=== PATIENT | female | born 1940 | race Caucasian/White ===

== ENCOUNTER 2019-09-19 13:00 | Inpatient (IN) | payer OTHER, MEDICARE, SELFPAY ==
[2019-09-19 13:07] VITALS: BMI 16.5
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
--- NOTE | 2019-09-19 13:31 | XR_ITS ---
WS: [id number] XR hip RT 2-3V wo/w pel* [id number] REASON FOR EXAM: fall, deformity FINDINGS: This study shows a dislocated comminuted fracture of the intertrochanteric area of the righ t hip displacement of the proximal portion from the distal medially. XR/XR hip RT 2-3V wo/w pel* [id number] IMPRESSION: Comminuted dislocated fracture of the intertrochanteric area of the right hip.
[2019-09-19 14:08] LABS: Basophils % 0.4 %; Eosinophils # 0.2 10^3/uL (0.0-0.8); Eosinophils % 2.3 %; Lymphocytes # 2.1 10^3/uL (0.8-4.8); Lymphocytes % 26.7 %; Mean Corpuscular HGB Conc 33.3 g/dL (30.0-36.0); Mean Corpuscular Hemoglobin 32.4 pg (28.0-34.0); Mean Corpuscular Volume 97.3 fL (81-99); Monocytes # 0.6 10^3/uL (0.2-0.9); Neutrophils # 4.9 10^3/uL (1.8-7.7); Neutrophils % 62.3 %; Nucleated Red Blood Cells % 0 %; Platelet Count 250 10^3/cmm (130-400); Red Cell Distribution Width 13.2 % (12.1-15.1); White Blood Count 7.8 10^3/uL (4.0-10.0)
[2019-09-19 14:23] LABS: Alanine Aminotransferase 23 U/L (0-33); Albumin Level 4.6 g/dL (3.5-5.2); Alkaline Phosphatase 54 IU/L (35-105); Aspartate Amino Transferase 47 U/L (0-32); Blood Urea Nitrogen 15 mg/dL (8-23); Calcium 9.7 mg/dL (8.5-10.5); Carbon Dioxide 26 mmol/L (22-29); Chloride 90 mmol/L (98-107); Globulin 3.2 g/dL (1.3-4.6); Glucose 138 mg/dL (65-115); Sodium 127 mmol/L (136-145); Total Bilirubin 0.5 mg/dL (0.15-1.2); Total Protein 7.8 g/dL (6.6-8.7)
--- NOTE | 2019-09-19 16:54 | PC.NURSE ---
Traction splint applied to patient. Posterior OCL applied and securred with ANIBAL wrap. Pulse, motor, and sensation present post application. Right leg secured to left leg.
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
--- NOTE | 2019-09-19 17:10 | PC.NURSE ---
Leiva catheter placed by charhouse worker
[2019-09-19 17:25] LABS: Iron 94 ug/dL (37-145); Percent Saturation 34.1 % (20-50); Total Iron Binding Capacity 275 mcg/dl; Unsaturated Iron Binding 181 ug/dL (112-347)
[2019-09-19 17:50] LABS: Alcohol Level < 10 mg/dL (0-10)
--- NOTE | 2019-09-19 18:27 | PC.NURSE ---
Wound on right hand cleaned with saline and dressed with 4x4's and coban.
[2019-09-19 18:35] VITALS: BP 115/75; PULSE 75; RESP 16; O2SAT 92
--- NOTE | 2019-09-19 18:39 | XR_ITS ---
WS: [id number] Portable AP upright chest, 09/19/2019 Clinical Data: pre op Comparison: Portable chest, 05/24/2014. Findings: No nodules, masses or effusions are seen. The heart is normal. The pulmonary vascularity is not increased. No pneumonia or pneumothorax is seen. The diaphragms are flattened. The aortic arch a nd descending aorta show tortuosity and minimal calcification. The patient's had a vertebroplasty at T5. There is a right total shoulder prosthesis. XR/XR chest 1V portable [id number] Impression: 1. Atherosclerosis and hyperinflation. 2. Vertebroplasty at T5 and right total shoulder prosthesis.
[2019-09-19 18:41] VITALS: BP 95/52; PULSE 73; RESP 20; TEMP 36.9; O2SAT 90
[2019-09-19 19:22] VITALS: BP 105/55; PULSE 67; RESP 17; TEMP 36.6; O2SAT 92
[2019-09-19] MEDS: pneumococcal (23 valent) SDV 0.5 mL IM (20:01)
[2019-09-19] MEDS: famotidine 20 mg/2 mL INJ IVP (20:03)
[2019-09-19] MEDS: folic acid 1 MG, multivitamin inj 10 ML, thiamine 100 MG in sodium chloride 0.9% 1,000 ML 252.8 MG IV (20:04)
[2019-09-19] MEDS: docusate sodium 100 mg Capsule PO (20:04)
[2019-09-19] MEDS: sodium chloride 0.9% 1,000 ML 100 ML IV (20:05)
[2019-09-19] MEDS: ondansetron 2 mg/ML SDV 2 mL 4 MG IVP (20:17)
[2019-09-19 21:28] VITALS: PULSE 59; RESP 16; O2SAT 94
[2019-09-19] MEDS: ipratropium-albuterol 3 mL Neb INHALATION (21:28)
[2019-09-19 21:33] VITALS: PULSE 59
[2019-09-19] MEDS: HYDROcodone-acetaminophen 5-325 mg Tablet 1 TAB PO (22:08)
[2019-09-19 22:17] LABS: Anion Gap 15.9 (5-19); Blood Urea Nitrogen 16 mg/dL (8-23); Calcium 8.5 mg/dL (8.5-10.5); Carbon Dioxide 23 mmol/L (22-29); Chloride 92 mmol/L (98-107); Glucose 149 mg/dL (65-115); Osmolality Calculated 263 mOsm/kg (285-295); Potassium 3.9 mmol/L (3.5-5.1); Sodium 127 mmol/L (136-145)
[2019-09-19] MEDS: LORazepam 2 mg Tablet PO (23:08)
[2019-09-20] VITALS (29 sets, daily range): BP systolic 86–133; BP diastolic 40–75; PULSE 65–94; RESP 12–19; TEMP 35.8–37.2; O2SAT 90–100
--- NOTE | 2019-09-20 | SCC_ITS ---
Procedure Done: Open reduction internal fixation right subtrochanteric hip fracture with Eugenio gamma 3 long trochanteric nail size 13 mm x 360 mm x 125 degrees with a proximal 10.5 mm x 85 mm lag screw and a distal fully locking screw size 5 mm x 40 mm 170.7 seconds of fluoroscopic guidance, for a cumulative dose of 11.85 mGy, was provided to Dr. Bell by the radiology department. C-arm images of the RIGHT femur were saved for the patient's permanent record. ZARA
--- NOTE | 2019-09-20 | XR_ITS ---
WS: [id number] Examination: Postop evaluation of the right hip HISTORY: Fracture and subtrochanteric. FINDINGS: The subtrochanteric fracture of the right hip seen immobilized with a gamma nail and a medu llary. The alignment is markedly improved from previous exam and is except. XR/XR femur RT min 2V* [id number] IMPRESSION: Subtrochanteric fracture immobilized with a gamma nail satisfactory alignment.
[2019-09-20] MEDS: ipratropium-albuterol 3 mL Neb INHALATION ×3 (02:20→20:34)
[2019-09-20 06:11] LABS: Anion Gap 15.6 (5-19); Blood Urea Nitrogen 14 mg/dL (8-23); Carbon Dioxide 19 mmol/L (22-29); Chloride 95 mmol/L (98-107); Glucose 131 mg/dL (65-115); Osmolality Calculated 258 mOsm/kg (285-295); Potassium 4.6 mmol/L (3.5-5.1); Sodium 125 mmol/L (136-145)
[2019-09-20 06:31] LABS: Chol HDL Ratio 2.36 mg/dL (0.0-4.40); Cholesterol 125 mg/dL (0-200); HDL Cholesterol 53 mg/dL (60-100); LDL Cholesterol Calculated 64 mg/dL (50-129); LDL HDL Ratio 1.21 RATIO (0.00-3.22); Triglycerides 42 mg/dL (0-150)
[2019-09-20 06:39] LABS: Basophils % 0.1 %; Hematocrit 25.2 % (37.0-47.0); Hemoglobin 8.4 g/dL (11.5-15.3); Lymphocytes # 0.9 10^3/uL (0.8-4.8); Lymphocytes % 9.6 %; Mean Corpuscular HGB Conc 33.3 g/dL (30.0-36.0); Mean Corpuscular Hemoglobin 33.9 pg (28.0-34.0); Mean Corpuscular Volume 101.6 fL (81-99); Mean Platelet Volume 11.3 fL (7.4-10.4); Monocytes # 0.9 10^3/uL (0.2-0.9); Monocytes % 9.6 %; Neutrophils # 7.2 10^3/uL (1.8-7.7); Neutrophils % 80.4 %; Nucleated Red Blood Cells % 0 %; Platelet Count 178 10^3/cmm (130-400); Red Blood Count 2.48 10^6/uL (4.1-5.3); Red Cell Distribution Width 13.3 % (12.1-15.1)
[2019-09-20 07:20] LABS: Estmated Average Glucose 108; Hemoglobin A1C 5.4 % (4.0-6.0)
[2019-09-20] MEDS: famotidine 20 mg/2 mL INJ IVP ×2 (08:04→20:44)
--- NOTE | 2019-09-20 08:07 | P.ANESASSM_ITS ---
Pre-Anesthetic Assessment Pre-Anesthetic Assessment: Height/Weight: Height 1.57 m Weight 42.683 kg Temp Pulse Resp BP Pulse Ox 97.9 F 71 17 113/60 96 09/20/19 04:00 09/20/19 04:00 09/20/19 04:00 09/20/19 04:00 09/20/19 04:00 Preop Diagnosis: Right subtrochanteric hip fracture Proposed Procedure: Operation Date: 09/20/19 12:00 Proposed Procedures p Trochanteric Femoral Nail(Right) - Senia Bell MD Last intake: Intake Last Liquid Date 09/19/19 Last Liquid Time 22:00 Last Solid Date 09/19/19 Last Solid Time 20:00 Social: Social History: Tobacco Packs per day: 1 Pack years: 50 Comment: quit ' Exam: Pre-Anes Outpt Exam: alert, oriented x 3, clear to auscultation bilaterally and regular rate & rhythm Airway: Submandibular: WNL Cervical ROM: WNL MP: 1 Dentition: False Metabolic: Metabolic: Hyperlipidemia Musc/skel: Musc/skel: Lower Back Pain Comments: right radiculopathy Anesthetic Plan: ASA status: 2 Anesthesia: General Meds/Allergies Current Medications: Current Medications Generic Name Dose Route Start Last Admin Trade Name Freq PRN Reason Stop Dose Admin Hydrocodone Bitart /Acetaminophen 1 tab 09/19/19 16:44 09/19/19 22:08 [place] 5-325 Mg PO 1 tab Q4H PRN Administration MODERATE TO SEVER E PAIN Albuterol/Ipratrop ium 3 ml 09/19/19 21:00 09/20/19 02:20 Duoneb INHALATION 3 ml Q6H.RESPIRATORY S CH Administration Docusate Sodium 100 mg 09/19/19 18:00 09/19/19 20:04 Colace PO 100 mg BID GAIL Administration Famotidine 20 mg 09/19/19 16:45 09/20/19 08:04 Pepcid Inj IVP 20 mg Q12H GAIL Administration Sodium Chloride 1,000 mls @ 100 m ls/hr 09/19/19 16:45 09/20/19 03:17 Sodium Chloride 0.9% IV 100 mls/hr .Q10H GAIL Infusion Lorazepam 2 mg 09/19/19 18:39 09/19/19 23:08 Ativan PO 2 mg PROTOCOL PRN Administration WITHDRAWAL Protocol Ondansetron HCl 4 mg 09/19/19 16:44 09/19/19 20:17 Zofran IVP 4 mg Q8H PRN Administration vomiting, or N/V if npo PFSH Anesthesia PFSH: Medical History (Updated 09/19/19 @ 18:17 by Robles Gilbert MD, [facility] [place]) Alcohol abuse Hyperlipidemia Hyponatremia Surgical History (Updated 09/19/19 @ 17:01 by Edy Page MD) History of appendectomy History of hemiarthroplasty of right shoulder Tubal ligation status Family History (Updated 09/19/19 @ 17:01 by Edy Page MD) Other CAD (coronary artery disease) Hypertension Social History (Updated 09/19/19 @ 17:02 by Edy Page MD) Smoking and tobacco status: former smoker Alcohol intake: current Alcohol intake frequency: 0-2 Drinks per Day Alcohol use comment: Gin and tonic Substance/Drug Use: never Household members: spouse Housing: House Data Anesthesia CBC & Chem 7: 09/20/19 06:25 09/20/19 04:30 Other Labs: Laboratory Results - last 48 hr 09/19/19 09/19/19 09/19/19 12:50 12:50 12:50 WBC 7.8 RBC 3.70 L Hgb 12.0 Hct 36.0 L MCV 97.3 MCH 32.4 MCHC 33.3 RDW 13.2 Plt Count 250 MPV 12.0 H Neut % (Auto) 62.3 Lymph % (Auto) 26.7 [place] % (Auto) 8.0 Eos % (Auto) 2.3 Baso % (Auto) 0.4 Neut # (Auto) 4.9 Lymph # (Auto) 2.1 [place] # (Auto) 0.6 Eos # (Auto) 0.2 Baso # (Auto) 0.0 Nucleated RBC % (auto) 0 Nucleated RBCs # 0.0 Sodium 127 L Potassium 4.0 Chloride 90 L Carbon Dioxide 26 Anion Gap 15.0 BUN 15 Creatinine 0.5 Glucose 138 H Estimat Average Glucose Hemoglobin A1c Calculated Osmolality Calcium 9.7 Iron 94 TIBC 275 % Saturation 34.1 Unsat Iron Binding 181 Total Bilirubin 0.5 AST 47 H ALT 23 Alkaline Phosphatase 54 Total Protein 7.8 Albumin 4.6 Globulin 3.2 Triglycerides Cholesterol LDL Cholesterol, Calc HDL Cholesterol LDL/HDL Ratio Cholesterol/HDL Ratio TSH 0.90 Ethyl Alcohol 09/19/19 09/19/19 09/20/19 12:50 22:00 04:30 WBC RBC Hgb Hct MCV MCH MCHC RDW Plt Count MPV Neut % (Auto) Lymph % (Auto) [place] % (Auto) Eos % (Auto) Baso % (Auto) Neut # (Auto) Lymph # (Auto) [place] # (Auto) Eos # (Auto) Baso # (Auto) Nucleated RBC % (auto) Nucleated RBCs # Sodium 127 L 125 L Potassium 3.9 4.6 Chloride 92 L 95 L Carbon Dioxide 23 19 L Anion Gap 15.9 15.6 BUN 16 14 Creatinine 0.5 0.4 L Glucose 149 H 131 H Estimat Average Glucose Hemoglobin A1c Calculated Osmolality 263 L 258 L Calcium 8.5 8.0 L Iron TIBC % Saturation Unsat Iron Binding Total Bilirubin AST ALT Alkaline Phosphatase Total Protein Albumin Globulin Triglycerides Cholesterol LDL Cholesterol, Calc HDL Cholesterol LDL/HDL Ratio Cholesterol/HDL Ratio TSH Ethyl Alcohol < 10 09/20/19 09/20/19 09/20/19 04:30 06:25 06:25 WBC 9.0 RBC 2.48 L Hgb 8.4 L Hct 25.2 L MCV 101.6 H MCH 33.9 MCHC 33.3 RDW 13.3 Plt Count 178 MPV 11.3 H Neut % (Auto) 80.4 Lymph % (Auto) 9.6 [place] % (Auto) 9.6 Eos % (Auto) 0.0 Baso % (Auto) 0.1 Neut # (Auto) 7.2 Lymph # (Auto) 0.9 [place] # (Auto) 0.9 Eos # (Auto) 0.0 Baso # (Auto) 0.0 Nucleated RBC % (auto) 0 Nucleated RBCs # 0.0 Sodium Potassium Chloride Carbon Dioxide Anion Gap BUN Creatinine Glucose Estimat Average Glucose 108 Hemoglobin A1c 5.4 Calculated Osmolality Calcium Iron TIBC % Saturation Unsat Iron Binding Total Bilirubin AST ALT Alkaline Phosphatase Total Protein Albumin Globulin Triglycerides 42 Cholesterol 125 LDL Cholesterol, Calc 64 HDL Cholesterol 53 L LDL/HDL Ratio 1.21 Cholesterol/HDL Ratio 2.36 TSH Ethyl Alcohol Cardiac Studies: No Data to Display
[2019-09-20] MEDS: CELEcoxib 200 mg Capsule 400 MG PO (09:57)
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
[2019-09-20] MEDS: ceFAZolin 1,000 mg SDV 1000 MG IRRIGATION (13:25)
--- NOTE | 2019-09-20 14:29 | SUR.PHASEI ---
1429 PT HAS SENSATION/MOVEMENT TO R. FOOT, PEDAL PULSE PALPATED, CAP REFILL <3 SEC
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
--- NOTE | 2019-09-20 14:48 | PM.PN ---
Subjective Subjective: Interval history: Seen today morning postop. Labs noted. On examination patient is lying comfortably in bed, still lethargic and waking up appropriately postop. Overnight patient needed 1 dose of Ativan for CIWA of 10. Vitals/I&O/Wt Last Vital Signs Temp 98.6 F 09/20/19 14:09 Pulse 68 09/20/19 14:40 Resp 12 09/20/19 14:40 BP 108/45 09/20/19 14:40 Pulse Ox 96 09/20/19 14:40 09/19/19 09/20/19 09/20/19 22:59 06:59 14:59 Intake Total 250 / 250 720 / 970 136.667 / 136.667 Output Total 500 / 500 400 / 400 Balance 250 / 250 220 / 470 -263.333 / -263.333 Weight last 48 hrs Weight 42.683 kg Weight 40.823 kg Physical Exam Narrative: EXAM NARRATIVE: General: No acute distress, AO x3, dehydrated, pallor present, no icteric HEENT: PERRLA, pupils bilaterally equal and reactive Chest: Normal vesicular breath sounds, no added sounds, equal good air entry bilaterally CVS: S1-S2 regular, no murmurs, no tachycardia, no gallops, no rubs Abdomen: Soft, nontender, no organomegaly, bowel sounds present Neuro: No focal deficits, no facial deformity, AO x3, power 5/5 in all limbs Extremities: Postop bandage present on the hip Data : 09/21/19 10:13 09/21/19 10:13 A&P Assessment and plan (1) Subtrochanteric fracture of right femur: Status: Acute Code(s): S72.21XA - Displaced subtrochanteric fracture of right femur, initial encounter for closed fracture (2) Hyponatremia: Status: Acute Code(s): E87.1 - Hypo-osmolality and hyponatremia (3) Hyperlipidemia: Status: Acute Code(s): E78.5 - Hyperlipidemia, unspecified (4) Alcohol abuse: Status: Acute Code(s): F10.10 - Alcohol abuse, uncomplicated Additional A&P Information Subtrochanteric fracture of the right femur: Postop day 0. Physical therapy, perioperative antibiotics as per Dr. Bell. Oxycodone IR for pain every 4 hours as needed as per Dr. Bell. We will try to minimize the sedative medication given the advanced age. Anticoagulation as per Dr. Bell. Anemia: Pre op Hb- 8.3 Check stat post op labs. Iron panel. If needed will do 1 unit transfusion. Alcohol abuse: Patient takes gin and tonic every day. Denies of having any history of withdrawal seizures for admission due to alcohol withdrawal. We will do alcohol level. We will also do drug screen. Ativan as per [facility] protocol. Hyponatremia: Patient has had hyponatremia before with baseline sodium going up to 130. It is 127 today. Most likely due to dehydration. C/w normal saline at 100 cc/h. Check urine studies for urine lites, urine osmolality, serum osmolality.Still awaited. We will check BMP daily. Full code. SCDs for DVT prophylaxis Regular diet for now, n.p.o. after midnight. Attestations Medical Necessity Statement*: Post op managemnet Time Spent in Patient Care: 16 - 35 minutes Coding Level of Care Code Acute Horseshoer for Rohan Regalado Diagnoses Subtrochanteric fracture of right femur S72.21XA Hyponatremia E87.1 Hyperlipidemia E78.5 Alcohol abuse F10.10
--- NOTE | 2019-09-20 15:36 | PC.CHAP ---
Pastoral Care Encounter/Spiritual Assessment Type of Contact [] Declined director of accreditation visit [] Patient/Family/Request visit [] Outpatient visit [] Follow-up visit [] Physician referral [] Code/Alert [x] Routine visit [] Staff referral [] Actively dying [] Patient sleeping [] Family support [] [x] Out of room [] Palliative care [] [] Receiving care in room [] Pre-surgical visit [] Trauma [] Long length of stay [] ICU visit [] Other: Relational/Emotional Strength [] Patient feels connected with others/family/visitors/staff [] Distress [] Loneliness/isolation [] Abandonment Spirituality of Patient [] Person of Anayeli [] Attends Restoration of their Anayeli [] Believes in Prayer [] Reads Bible or Rastafari materials [] There are Spiritual issues to be addressed Ticket Taker Interventions [] Prayer [] Active listening [] Non-anxious presence [] Spiritual/emotional support [] Crisis/trauma care [] Spiritual counseling [] Bereavement support [] Provided bereavement packet [] Provided Bible/devotional materials [] Provided toy/stuffed animal, coloring book to patient or family member [] Provided Communion [] Anointing/[place] [] Salvation [] Completed spiritual assessment [] Other: Impact on Illness or Injury [] Angry [] Fearful [] Anxious [] Often cries [] Exhaustion [] Unable to work [] Unable to attend methodist [] Unable to walk/stand [] Unable to read [] Unable to drive [] Unable to eat/drink [] Unable to sleep [] Unable to be with family [] Patient intubated [] Other: Summary Ticket Taker request follow up visit by incoming director of accreditation. Time spent with patient
[2019-09-20] MEDS: acetaminophen 500 mg Tablet 1000 MG PO ×2 (16:10→23:34)
[2019-09-20 17:16] LABS: Add Urine Microscopic? NO
[2019-09-20 17:30] LABS: Bilirubin Urine Neg (NEGATIVE); Blood Urine Neg (Negative); Glucose Urine UA Norm (Normal); Ketones Urine Negative (Negative); Leukocyte Esterase Urine Negative (Negative); Nitrate Urine Negative (Negative); Protein Urine Neg (Negative); Urine Appearance Clear (CLEAR); Urine Color Yellow (Yellow); Urobilinogen Urine Norm (Negative); pH Urine 5 (5-7)
[2019-09-20] MEDS: sodium chloride 0.9% 1,000 ML 100 ML IV (17:30)
[2019-09-20] MEDS: CELEcoxib 200 mg Capsule PO (18:59)
[2019-09-20] MEDS: docusate sodium 100 mg Capsule PO (18:59)
[2019-09-20 19:03] LABS: Hematocrit 23.2 % (37.0-47.0); Hemoglobin 7.3 g/dL (11.5-15.3)
[2019-09-20] MEDS: sodium chloride 0.9% 500 ML IV (20:44)
[2019-09-21] VITALS (17 sets, daily range): BP systolic 99–110; BP diastolic 51–61; PULSE 78–95; RESP 16–18; TEMP 36.4–36.9; O2SAT 93–99
[2019-09-21] MEDS: ipratropium-albuterol 3 mL Neb INHALATION ×4 (02:29→20:45)
[2019-09-21 03:53] LABS: Basophils % 0.2 %; Eosinophils % 0.3 %; Hematocrit 22.4 % (37.0-47.0); Hemoglobin 7.5 g/dL (11.5-15.3); Lymphocytes # 0.9 10^3/uL (0.8-4.8); Lymphocytes % 9.8 %; Mean Corpuscular HGB Conc 33.5 g/dL (30.0-36.0); Mean Corpuscular Hemoglobin 33.2 pg (28.0-34.0); Mean Corpuscular Volume 99.1 fL (81-99); Mean Platelet Volume 11.6 fL (7.4-10.4); Monocytes # 0.8 10^3/uL (0.2-0.9); Neutrophils # 7.1 10^3/uL (1.8-7.7); Neutrophils % 80.4 %; Nucleated Red Blood Cells % 0 %; Platelet Count 132 10^3/cmm (130-400); Red Blood Count 2.26 10^6/uL (4.1-5.3); Red Cell Distribution Width 15.8 % (12.1-15.1); White Blood Count 8.9 10^3/uL (4.0-10.0)
[2019-09-21 03:59] LABS: Anion Gap 10.1 (5-19); Blood Urea Nitrogen 9 mg/dL (8-23); Calcium 7.1 mg/dL (8.5-10.5); Carbon Dioxide 23 mmol/L (22-29); Chloride 100 mmol/L (98-107); Glucose 124 mg/dL (65-115); Osmolality Calculated 265 mOsm/kg (285-295); Potassium 4.1 mmol/L (3.5-5.1); Sodium 129 mmol/L (136-145)
[2019-09-21] MEDS: acetaminophen 500 mg Tablet 1000 MG PO ×3 (06:57→22:07)
[2019-09-21 07:31] LABS: Osmolality Urine 729
[2019-09-21] MEDS: atorvastatin 40 mg Tablet 20 MG PO (09:15)
[2019-09-21] MEDS: aspirin 325 mg EC Tablet PO (09:15)
[2019-09-21] MEDS: CELEcoxib 200 mg Capsule PO ×2 (09:17→17:20)
[2019-09-21] MEDS: thiamine 100 mg Tablet PO (09:22)
[2019-09-21] MEDS: folic acid 1 mg Tablet PO (09:23)
[2019-09-21] MEDS: multivitamin therapeutic Tablet 1 TAB PO (09:23)
[2019-09-21] MEDS: famotidine 20 mg/2 mL INJ IVP ×2 (09:24→22:11)
[2019-09-21] MEDS: docusate sodium 100 mg Capsule PO ×2 (09:24→17:20)
[2019-09-21] MEDS: sodium chloride 0.9% 1,000 ML 100 ML IV ×2 (09:38→22:09)
--- NOTE | 2019-09-21 09:48 | PM.PN ---
Subjective Subjective: Interval history: Patient is seen and is doing well. She is alert and awake. She has no complaints today. Medications: Reviewed: Yes Vitals/I&O/Wt Last Vital Signs Temp 98.2 F 09/21/19 08:00 Pulse 85 09/21/19 09:34 Resp 17 09/21/19 09:28 BP 102/56 09/21/19 08:00 Pulse Ox 96 09/21/19 09:28 09/20/19 09/21/19 09/21/19 22:59 06:59 14:59 Intake Total 1053.333 / 1190.000 600 / 1790.000 601.667 / 601.667 Output Total 500 / 1200 Balance 1053.333 / 490.000 100 / 590.000 601.667 / 601.667 Weight last 48 hrs Weight 105 lb 11.2 oz Weight 94 lb 1.6 oz Weight 90 lb Physical Exam Const: COMMON NORMALS: no apparent distress, average body habitus, oriented x3 and alert GENERAL APPEARANCE: cooperative and comfortable NUTRITIONAL APPEARANCE: thin ORIENTATION/CONSCIOUSNESS: Yes awake HENMT: COMMON NORMALS: normocephalic and head/scalp atraumatic HEAD & SCALP: normocephalic and atraumatic Eye: GENERAL EYE: normal appearance of both eyes Chest: COMMONS NORMALS: inspection of chest normal Resp: COMMON NORMALS: normal respiratory effort EFFORT & INSPECTION: Yes able to speak in complete sentences and Yes symmetric chest movement Extremity: RIGHT LOWER EXTREMITY: Yes hip joint (Dressings are dry and intact. There is no evidence of infection or DVT.) Right hip: Yes palpation (Minimal pain to palpation.) and Yes neurovascular exam (Intact) Neuro: COMMON NORMALS: oriented x3 SENSORIUM/ORIENTATION: Yes alert Psych: COMMON NORMALS: mental status grossly normal APPEARANCE: Yes grossly normal ATTITUDE: Yes calm and Yes engaged ATTENTION/CONCENTRATION: Yes attention grossly intact Skin: COMMON NORMALS: no rashes or lesions noted GENERAL SKIN EXAM: no rashes or lesions noted Urinary Catheter Management^: Leiva: Cath Placed During This Visit: yes, but has since been removed by the nurse Reason for Continuing Indwelling Catheter: Required Immobilization for Trauma or Surgery or Anesthesia Urinary Catheter Date of Insertion: 09/20/19 Urinary Catheter Time of Insertion: 06:00 Date Urinary Catheter Removed: 09/21/19 Time Urinary Catheter Discontinued: 06:00 Data : 09/21/19 03:22 03 03:22 A&P Assessment and plan (1) Subtrochanteric fracture of right femur: The patient was admitted to the hospital through the emergency department with a diagnosis of a subtrochanteric right femur fracture. Patient is undergone open reduction internal fixation successfully. She is now ready for toe-touch weightbearing rehabilitation. Plans will be that she will require intermediate at the time of discharge. Status: Acute Code(s): S72.21XA - Displaced subtrochanteric fracture of right femur, initial encounter for closed fracture Attestations Medical Necessity Statement*: Patient will require further inpatient monitoring and rehabilitation following subtrochanteric hip fracture. Coding Level of Care Code Acute Plush Cutter for Rohan Regalado Diagnoses Subtrochanteric fracture of right femur S72.21XA
[2019-09-21 10:59] LABS: Basophils % 0.2 %; Eosinophils % 0.1 %; Hemoglobin 8.3 g/dL (11.5-15.3); Lymphocytes # 0.6 10^3/uL (0.8-4.8); Mean Corpuscular HGB Conc 31.9 g/dL (30.0-36.0); Mean Corpuscular Hemoglobin 31.6 pg (28.0-34.0); Mean Corpuscular Volume 98.9 fL (81-99); Mean Platelet Volume 11.9 fL (7.4-10.4); Monocytes # 0.8 10^3/uL (0.2-0.9); Neutrophils # 8.4 10^3/uL (1.8-7.7); Neutrophils % 85.5 %; Nucleated Red Blood Cells % 0 %; Platelet Count 156 10^3/cmm (130-400); Red Blood Count 2.63 10^6/uL (4.1-5.3); Red Cell Distribution Width 16.5 % (12.1-15.1); White Blood Count 9.8 10^3/uL (4.0-10.0)
[2019-09-21 11:17] LABS: Alanine Aminotransferase 17 U/L (0-33); Albumin Level 3.6 g/dL (3.5-5.2); Alkaline Phosphatase 47 IU/L (35-105); Anion Gap 13.8 (5-19); Aspartate Amino Transferase 37 U/L (0-32); Blood Urea Nitrogen 10 mg/dL (8-23); Calcium 7.5 mg/dL (8.5-10.5); Carbon Dioxide 21 mmol/L (22-29); Chloride 99 mmol/L (98-107); Globulin 2.3 g/dL (1.3-4.6); Glucose 120 mg/dL (65-115); Potassium 3.8 mmol/L (3.5-5.1); Sodium 130 mmol/L (136-145); Total Bilirubin 0.8 mg/dL (0.15-1.2); Total Protein 5.9 g/dL (6.6-8.7)
--- NOTE | 2019-09-21 11:24 | P.PN_ITS ---
Subjective Subjective: Interval history: This morning on examination patient is sitting comfortably in chair. Patient has worked well with physical therapy. Denies of any having nausea, vomiting, chest pain. Pain is well controlled. Overnight patient had mild hypotension for required 250 cc of bolus and responded appropriately. Received 1 unit PRBC last evening. Labs noted. Medications: Reviewed: Yes Vitals/I&O/Wt Last Vital Signs Temp 98.2 F 09/21/19 08:00 Pulse 85 09/21/19 09:34 Resp 17 09/21/19 09:28 BP 102/56 09/21/19 08:00 Pulse Ox 96 09/21/19 09:28 09/20/19 09/21/19 09/21/19 22:59 06:59 14:59 Intake Total 1053.333 / 1190.000 600 / 1790.000 601.667 / 601.667 Output Total 500 / 1200 Balance 1053.333 / 490.000 100 / 590.000 601.667 / 601.667 Weight last 48 hrs Weight 47.945 kg Weight 42.683 kg Weight 40.823 kg Physical Exam Narrative: EXAM NARRATIVE: General: No acute distress, AO x3, dehydrated, pallor present, no icteric HEENT: PERRLA, pupils bilaterally equal and reactive Chest: Normal vesicular breath sounds, no added sounds, equal good air entry bilaterally CVS: S1-S2 regular, no murmurs, no tachycardia, no gallops, no rubs Abdomen: Soft, nontender, no organomegaly, bowel sounds present Neuro: No focal deficits, no facial deformity, AO x3, power 5/5 in all limbs Extremities: Postop bandage present on the hip Urinary Catheter Management^: Leiva: Cath Placed During This Visit: yes, but has since been removed by the nurse Reason for Continuing Indwelling Catheter: Required Immobilization for Trauma or Surgery or Anesthesia Urinary Catheter Date of Insertion: 09/20/19 Urinary Catheter Time of Insertion: 06:00 Date Urinary Catheter Removed: 09/21/19 Time Urinary Catheter Discontinued: 06:00 Data : 09/21/19 10:13 09/21/19 10:13 A&P Assessment and plan (1) Subtrochanteric fracture of right femur: Status: Acute Code(s): S72.21XA - Displaced subtrochanteric fracture of right femur, initial encounter for closed fracture (2) Hyponatremia: Status: Acute Code(s): E87.1 - Hypo-osmolality and hyponatremia (3) Hyperlipidemia: Status: Acute Code(s): E78.5 - Hyperlipidemia, unspecified (4) Alcohol abuse: Status: Acute Code(s): F10.10 - Alcohol abuse, uncomplicated Additional A&P Information Subtrochanteric fracture of the right femur: Postop day 1. Working well withj PT. Oxycodone IR for pain every 4 hours as needed as per Dr. Bell. We will try to minimize the sedative medication given the advanced age. Anticoagulation as per Dr. Bell. Anemia: Post Op Hb was 7.3 given 1 unit PRBC. Hb 7.5 in AM. Recheck CBC. If still low will transfuse. Iron panel appreciated. Alcohol abuse: Patient takes gin and tonic every day. Denies of having any history of withdrawal seizures for admission due to alcohol withdrawal. We will do alcohol level. We will also do drug screen. Ativan as per [facility] protocol. Hyponatremia: Improving. MOst likely beer potonamia and dehydration. Urine studies still not sent. Now no point C/w normal saline at 100 cc/h. Check urine studies for urine lites, urine osmolality, serum osmolality.Still awaited. We will check BMP daily. Dipo: SNF once placed. Most likley d/c tomorrow. Full code. SCDs for DVT prophylaxis Regular diet for now, n.p.o. after midnight. Attestations Medical Necessity Statement*: Post Op management Time Spent in Patient Care: 16 - 35 minutes Coding Level of Care Code Acute Quality Assurance Lab Technician for Rohan Fwd Diagnoses Subtrochanteric fracture of right femur S72.21XA Hyponatremia E87.1 Hyperlipidemia E78.5 Alcohol abuse F10.10
--- NOTE | 2019-09-21 12:26 | ANE.PACU2 ---
 Inpatient post-anesthesia follow up: Airway intact: Yes Vital signs: Temperature 98.1 F Pulse Rate 87 Respiratory Rate 18 Blood Pressure 106/56 Pulse Oximetry 94 Oxygen Delivery Me thod Room Air Oxygen Flow Rate 8 Fraction of Inspir ed Oxygen Hydration adequate: Yes Nausea and vomiting: No Pain level: 2 Mental status: Baseline
--- NOTE | 2019-09-21 16:05 | PC.NURSE ---
bladder bladder scanned 77ml.
[2019-09-21] MEDS: FUROsemide 10 mg/mL SDV 2mL IVP (18:48)
[2019-09-21] MEDS: lactulose oral liq 20 gm/30 mL UDC 10 GM PO (18:49)
[2019-09-21] MEDS: efferdent effervescent 1 EACH DENTAL (23:22)
[2019-09-21 23:50] LABS: Amphetamines Screen Urine Negative (Negative); Barbiturates Screen Urine Negative (Negative); Benzodiazepines Screen Urine Positive (Negative); Cocaine Screen Urine Negative (Negative); Opiate Screen Urine Negative (Negative); PCP Screen Urine Negative (Negative); THC Screen Urine Negative (Negative)
[2019-09-22] VITALS (26 sets, daily range): BP systolic 105–128; BP diastolic 56–70; PULSE 71–96; RESP 16–18; TEMP 36.4–36.9; O2SAT 93–100
[2019-09-22 00:12] LABS: Bilirubin Urine Neg (NEGATIVE); Blood Urine Neg (Negative); Glucose Urine UA Norm (Normal); Ketones Urine Negative (Negative); Leukocyte Esterase Urine Negative (Negative); Nitrate Urine Negative (Negative); Protein Urine Neg (Negative); Specific Gravity, Urine 1.015 (1.005-1.030); Urine Appearance Clear (CLEAR); Urine Color Yellow (Yellow); Urobilinogen Urine Norm (Negative); pH Urine 5 (5-7)
[2019-09-22 00:13] LABS: Add Urine Culture? No
[2019-09-22 00:24] LABS: Potassium, Radom Urine 32 mmol/L; Urine Random Chloride 65 mmol/L; Urine Random Sodium 33 mmol/L
[2019-09-22] MEDS: ipratropium-albuterol 3 mL Neb INHALATION ×4 (03:11→20:05)
[2019-09-22] MEDS: TRAMadol 50 mg Tablet PO ×2 (05:01→17:25)
[2019-09-22 05:31] LABS: Basophils % 0.3 %; Eosinophils # 0.1 10^3/uL (0.0-0.8); Eosinophils % 1.7 %; Lymphocytes # 0.8 10^3/uL (0.8-4.8); Lymphocytes % 10.2 %; Mean Corpuscular Hemoglobin 33.2 pg (28.0-34.0); Mean Corpuscular Volume 100.5 fL (81-99); Mean Platelet Volume 11.9 fL (7.4-10.4); Monocytes # 0.8 10^3/uL (0.2-0.9); Monocytes % 10.3 %; Neutrophils # 5.8 10^3/uL (1.8-7.7); Neutrophils % 77.2 %; Nucleated Red Blood Cells % 0 %; Platelet Count 123 10^3/cmm (130-400); Red Blood Count 1.93 10^6/uL (4.1-5.3); White Blood Count 7.5 10^3/uL (4.0-10.0)
[2019-09-22 05:32] LABS: Alanine Aminotransferase 10 U/L (0-33); Albumin Level 2.9 g/dL (3.5-5.2); Alkaline Phosphatase 43 IU/L (35-105); Anion Gap 12.9 (5-19); Aspartate Amino Transferase 33 U/L (0-32); Blood Urea Nitrogen 13 mg/dL (8-23); Calcium 7.5 mg/dL (8.5-10.5); Carbon Dioxide 21 mmol/L (22-29); Chloride 103 mmol/L (98-107); Globulin 2.1 g/dL (1.3-4.6); Glucose 114 mg/dL (65-115); Potassium 3.9 mmol/L (3.5-5.1); Sodium 133 mmol/L (136-145); Total Bilirubin 0.4 mg/dL (0.15-1.2)
[2019-09-22 05:45] LABS: Hematocrit 19.4 % (37.0-47.0); Hemoglobin 6.4 g/dL (11.5-15.3)
[2019-09-22] MEDS: acetaminophen 500 mg Tablet 1000 MG PO ×3 (06:39→23:09)
[2019-09-22 07:46] LABS: Hematocrit 18.6 % (37.0-47.0); Hemoglobin 6.1 g/dL (11.5-15.3)
[2019-09-22] MEDS: famotidine 20 mg/2 mL INJ IVP ×2 (08:41→19:46)
[2019-09-22] MEDS: atorvastatin 40 mg Tablet 20 MG PO (09:26)
[2019-09-22] MEDS: CELEcoxib 200 mg Capsule PO ×2 (09:26→17:25)
[2019-09-22] MEDS: thiamine 100 mg Tablet PO (09:26)
[2019-09-22] MEDS: folic acid 1 mg Tablet PO (09:26)
[2019-09-22] MEDS: multivitamin therapeutic Tablet 1 TAB PO (09:26)
[2019-09-22] MEDS: docusate sodium 100 mg Capsule PO ×2 (09:26→17:25)
[2019-09-22] MEDS: aspirin 325 mg EC Tablet PO (09:27)
[2019-09-22] MEDS: sodium chloride 0.9% 200 ML 100 ML (09:37)
--- NOTE | 2019-09-22 10:25 | P.PN_ITS ---
Subjective Subjective: Interval history: This morning on examination patient is sitting comfortably in chair. Patient has worked well with physical therapy. Denies of any having nausea, vomiting, chest pain. Pain is well controlled. Hemoglobin down to 6.1 today morning. Patient denies of having any dizziness. Patient getting first unit of PRBCs Medications: Reviewed: Yes Vitals/I&O/Wt Last Vital Signs Temp 97.9 F 09/22/19 09:23 Pulse 86 09/22/19 09:56 Resp 17 09/22/19 09:52 BP 124/65 09/22/19 09:23 Pulse Ox 95 09/22/19 09:52 09/21/19 09/22/19 09/22/19 22:59 06:59 14:59 Intake Total 1120 / 2111.667 325 / 2436.667 240 / 240 Output Total 550 / 650 800 / 1450 Balance 570 / 1461.667 -475 / 986.667 240 / 240 Weight last 48 hrs Weight 64.41 kg Weight 47.945 kg Physical Exam Narrative: EXAM NARRATIVE: General: No acute distress, AO x3, dehydrated, pallor present, no icteric HEENT: PERRLA, pupils bilaterally equal and reactive Chest: Normal vesicular breath sounds, no added sounds, equal good air entry bilaterally CVS: S1-S2 regular, no murmurs, no tachycardia, no gallops, no rubs Abdomen: Soft, nontender, no organomegaly, bowel sounds present Neuro: No focal deficits, no facial deformity, AO x3, power 5/5 in all limbs Extremities: Postop bandage present on the hip Urinary Catheter Management^: Leiva: Cath Placed During This Visit: yes, but has since been removed by the nurse Reason for Continuing Indwelling Catheter: Not indwelling catheter Urinary Catheter Date of Insertion: 09/20/19 Urinary Catheter Time of Insertion: 06:00 Date Urinary Catheter Removed: 09/21/19 Time Urinary Catheter Discontinued: 06:00 Data : 09/22/19 07:23 09/22/19 04:23 A&P Assessment and plan (1) Subtrochanteric fracture of right femur: Status: Acute Code(s): S72.21XA - Displaced subtrochanteric fracture of right femur, initial encounter for closed fracture (2) Hyponatremia: Status: Acute Code(s): E87.1 - Hypo-osmolality and hyponatremia (3) Hyperlipidemia: Status: Acute Code(s): E78.5 - Hyperlipidemia, unspecified (4) Alcohol abuse: Status: Acute Code(s): F10.10 - Alcohol abuse, uncomplicated Additional A&P Information Subtrochanteric fracture of the right femur: Postop day 2. Working well with PT. Tramadol every 4 hours and oxycodone IR for pain every 4 hours as needed as per Dr. Bell. We will try to minimize the sedative medication given the advanced age. Patient has not taken any oxycodone till now. Anticoagulation as per Dr. Bell. Anemia: 6.1 today. Till now patient received 1 unit PRBC. We will transfuse with 2 more units today and recheck hemoglobin after completion. Iron panel appreciated. Alcohol abuse: Patient takes gin and tonic every day. Denies of having any history of withdrawal seizures for admission due to alcohol withdrawal. We will do alcohol level. We will also do drug screen. Ativan as per [facility] protocol. Hyponatremia: Improving. Most likely beer potonamia and dehydration. Urine studies still not sent. Now no point Stop IV fluids as patient is tolerating oral well. Check urine studies for urine lites, urine osmolality, serum osmolality.Still awaited. We will check BMP daily. Dispo: SNF once placed. Most dany d/c tomorrow. Full code. SCDs for DVT prophylaxis Regular diet for now, n.p.o. after midnight. Attestations Medical Necessity Statement*: Blood loss anemia, postoperative care Time Spent in Patient Care: 16 - 35 minutes Coding Level of Care Code Acute Advisor Consultant for [facility] Fwd Diagnoses Subtrochanteric fracture of right femur S72.21XA Hyponatremia E87.1 Hyperlipidemia E78.5 Alcohol abuse F10.10
--- NOTE | 2019-09-22 12:33 | PC.SOCIAL ---
Pg 2 IMM Explained to pt Pg 2 IMM & provided pt a copy. No questions voiced. Signed, dated, timed, & placed in pt's chart.
--- NOTE | 2019-09-22 15:24 | PC.OT ---
OT TREATMENT HELD DUE TODAY LOW HGB
--- NOTE | 2019-09-22 16:15 | P.PN_ITS ---
Subjective Subjective: Interval history: Patient continues to do well except she had a decrease in her H&H requiring transfusion. She is alert and awake and is very happy to move her foot and her leg. Medications: Reviewed: Yes Vitals/I&O/Wt Last Vital Signs Temp 97.8 F 09/22/19 15:44 Pulse 92 09/22/19 15:44 Resp 18 09/22/19 15:44 BP 128/68 09/22/19 15:44 Pulse Ox 99 09/22/19 15:44 09/22/19 09/22/19 09/22/19 06:59 14:59 22:59 Intake Total 325 / 2436.667 710 / 710 Output Total 800 / 1450 Balance -475 / 986.667 710 / 710 Weight last 48 hrs Weight 142 lb Weight 105 lb 11.2 oz Physical Exam Const: COMMON NORMALS: no apparent distress, average body habitus, oriented x3 and alert GENERAL APPEARANCE: cooperative and comfortable NUTRITIONAL APPEARANCE: thin ORIENTATION/CONSCIOUSNESS: Yes awake HENMT: COMMON NORMALS: normocephalic and head/scalp atraumatic HEAD & SCALP: normocephalic and atraumatic Eye: GENERAL EYE: normal appearance of both eyes Chest: COMMONS NORMALS: inspection of chest normal Resp: COMMON NORMALS: normal respiratory effort EFFORT & INSPECTION: Yes able to speak in complete sentences and Yes symmetric chest movement Extremity: RIGHT LOWER EXTREMITY: Yes hip joint (Patient's thigh is soft and nontender. There is no evidence of active bleeding.) Right hip: Yes inspection (Dressings are dry and intact.), Yes palpation (No tenderness to palpation.), Yes ROM (Not evaluated this patient was sitting up in her chair.) and Yes neurovascular exam (Intact.) Neuro: COMMON NORMALS: oriented x3 SENSORIUM/ORIENTATION: Yes alert Psych: COMMON NORMALS: mental status grossly normal APPEARANCE: Yes grossly normal ATTITUDE: Yes calm and Yes engaged ATTENTION/CONCENTRATION: Yes a ttention grossly intact Skin: COMMON NORMALS: no rashes or lesions noted GENERAL SKIN EXAM: no rashes or lesions noted Urinary Catheter Management^: Leiva: Cath Placed During This Visit: yes, but has since been removed by the nurse Reason for Continuing Indwelling Catheter: Not indwelling catheter Urinary Catheter Date of Insertion: 09/20/19 Urinary Catheter Time of Insertion: 06:00 Date Urinary Catheter Removed: 09/21/19 Time Urinary Catheter Discontinued: 06:00 Data : 09/22/19 07:23 09/22/19 04:23 A&P Assessment and plan (1) Subtrochanteric fracture of right femur: Open reduction internal fixation of her subtrochanteric hip fracture. She does have postoperative anemia and was treated with 2 units of packed red blood cells today. [facility], however, she required transfusion prior to discharge. Status: Acute Code(s): S72.21XA - Displaced subtrochanteric fracture of right femur, initial encounter for closed fracture Attestations Medical Necessity Statement*: Patient requires ongoing inpatient rehabilitation and medical management. Coding Level of Care Code Acute Dinkey Mechanic for Rohan Regalado Diagnoses Subtrochanteric fracture of right femur S72.21XA
[2019-09-22] MEDS: oxyCODONE 5 mg IR Tab/Cap PO (19:04)
[2019-09-22 22:48] LABS: Basophils % 0.3 %; Eosinophils # 0.2 10^3/uL (0.0-0.8); Hematocrit 30.6 % (37.0-47.0); Lymphocytes # 1.1 10^3/uL (0.8-4.8); Lymphocytes % 11.2 %; Mean Corpuscular HGB Conc 33.3 g/dL (30.0-36.0); Mean Corpuscular Hemoglobin 30.6 pg (28.0-34.0); Mean Corpuscular Volume 91.9 fL (81-99); Mean Platelet Volume 11.4 fL (7.4-10.4); Monocytes # 0.9 10^3/uL (0.2-0.9); Monocytes % 9.1 %; Neutrophils # 7.7 10^3/uL (1.8-7.7); Nucleated Red Blood Cells % 0 %; Platelet Count 140 10^3/cmm (130-400); Red Blood Count 3.33 10^6/uL (4.1-5.3); Red Cell Distribution Width 16.9 % (12.1-15.1)
[2019-09-22 22:50] LABS: Hemoglobin 10.2 g/dL (11.5-15.3)
--- NOTE | 2019-09-22 22:53 | PC.NURSE ---
pt not wanting to turn on side, much encouragement place pillow to turn on left side. redness to coccyx and upper spine area
[2019-09-23] VITALS (7 sets, daily range): BP systolic 112–114; BP diastolic 57–62; PULSE 69–88; RESP 14–18; TEMP 35.9–36.6; O2SAT 95–97
--- NOTE | 2019-09-23 01:21 | PC.NURSE ---
pt pulled pillow out laying on back, resting at this time will try to reposition again next round. Refusing footpumps
[2019-09-23] MEDS: ipratropium-albuterol 3 mL Neb INHALATION ×2 (02:11→09:14)
[2019-09-23] MEDS: acetaminophen 500 mg Tablet 1000 MG PO ×2 (05:58→14:47)
[2019-09-23 06:01] LABS: Basophils % 0.3 %; Eosinophils # 0.3 10^3/uL (0.0-0.8); Hematocrit 27.7 % (37.0-47.0); Hemoglobin 9.3 g/dL (11.5-15.3); Lymphocytes % 11.3 %; Mean Corpuscular HGB Conc 33.6 g/dL (30.0-36.0); Mean Corpuscular Hemoglobin 31.5 pg (28.0-34.0); Mean Corpuscular Volume 93.9 fL (81-99); Mean Platelet Volume 11.8 fL (7.4-10.4); Monocytes # 0.9 10^3/uL (0.2-0.9); Monocytes % 9.9 %; Neutrophils # 6.5 10^3/uL (1.8-7.7); Neutrophils % 75.2 %; Nucleated Red Blood Cells % 0 %; Platelet Count 134 10^3/cmm (130-400); Red Blood Count 2.95 10^6/uL (4.1-5.3); Red Cell Distribution Width 16.6 % (12.1-15.1); White Blood Count 8.6 10^3/uL (4.0-10.0)
[2019-09-23] MEDS: famotidine 20 mg Tablet PO (08:26)
[2019-09-23] MEDS: aspirin 325 mg EC Tablet PO (08:26)
[2019-09-23] MEDS: thiamine 100 mg Tablet PO (08:26)
[2019-09-23] MEDS: docusate sodium 100 mg Capsule PO (08:27)
[2019-09-23] MEDS: folic acid 1 mg Tablet PO (08:27)
[2019-09-23] MEDS: multivitamin therapeutic Tablet 1 TAB PO (08:27)
[2019-09-23] MEDS: atorvastatin 40 mg Tablet 20 MG PO (08:27)
[2019-09-23] MEDS: CELEcoxib 200 mg Capsule PO (08:27)
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
== END 2019-09-23 16:19 | disposition skilled nursing facility (03) | DRG 481 ==
LOC: ER 14:12 → MEDSURG 17:52
PROVIDERS: Internal Medicine; Specialist; Admitting Provider Student in an Organized Health Care Education/Training Program; Emergency Provider Family Medicine; Family Provider Family Medicine; PCP Family Medicine; Visit Provider Internal Medicine
PROC: 0QS604Z Reposition Right Upper Femur with Internal Fixation Device, Open Approach (ICD-10-PCS; CPT 27245; principal; 2019-09-20 12:00)
DX: S72.21XA Displaced subtrochanteric fracture of right femur, initial encounter for closed fracture (principal); E87.1 Hypo-osmolality and hyponatremia; D62 Acute posthemorrhagic anemia; Z79.82 Long term (current) use of aspirin; Z79.899 Other long term (current) drug therapy; V03.90XA Pedestrian on foot injured in collision with car, pick-up truck or van, unspecified whether traffic or nontraffic accident, initial encounter; E78.5 Hyperlipidemia, unspecified; F10.10 Alcohol abuse, uncomplicated; E86.0 Dehydration; Z96.611 Presence of right artificial shoulder joint
CPT/HCPCS: 12345; 36415; 36430; 51702; 51798; 71045; 73502; 73552; 76000; 80048; 80053; 80061; 80307; 81001; 81003; 82436; 83036; 83540; 83550; 83935; 84133; 84300; 84443; 85014; 85018; 85025; 86850; 86900; 86920; 90471; 90732; 94640; 94664; 96365; 96372; 96375; 97110; 97116; 97161; 97166; 97530; 97535; 99282; C1713; J0131; J0690; J1940; J2001; J2370; J2405; J2704; J2710; J3010; J3411; J3490; J7030; J7040; P9016

== ENCOUNTER → 2019-10-12 10:59 | Outpatient (BNVA) | payer MEDICARE, OTHER, SELFPAY | PROVIDERS: Family Provider Family Medicine; PCP Family Medicine; Visit Provider Specialist | DX: S72.21XA Displaced subtrochanteric fracture of right femur, initial encounter for closed fracture (principal); X58.XXXA Exposure to other specified factors, initial encounter | CPT/HCPCS: 73502 ==

== ENCOUNTER → 2019-11-10 11:02 | Outpatient (BNVA) | payer MEDICARE, OTHER, SELFPAY | PROVIDERS: Family Provider Family Medicine; PCP Family Medicine; Visit Provider Specialist | DX: S72.21XA Displaced subtrochanteric fracture of right femur, initial encounter for closed fracture (principal); X58.XXXA Exposure to other specified factors, initial encounter | CPT/HCPCS: 73502 ==

== ENCOUNTER 2021-07-26 09:47 | Emergency (ER) | payer MEDICARE, OTHER, SELFPAY ==
[2021-07-26 09:49] VITALS: BP 117/58; PULSE 87; RESP 12; TEMP 36.4; O2SAT 93; BMI 14.1
--- NOTE | 2021-07-26 10:05 | XR_ITS ---
WS: [id number] Cervical spine, 4 views, 07/26/2021 Clinical Data: fall Comparison: None. Findings: No compression fractures are seen. There is osteoporosis of the cervical vertebral bodies. Osteoarthritic change from C3 through C7 is noted. The disc heights are normal. There is no preverteb ral soft tissue swelling. The odontoid shows no definite fractures but on the AP view there is slight widening of the distance between the odontoid and the left C1 mass. Although this could be secondary to rotation, a fracture is possible. The soft tissues of the neck show minimal calcification in the region of the left carotid bifurcation. The lung apices are normal. There is a total right shoulder p rosthesis. XR/XR cervical spine 3V* [id number] Impression: 1. Slight widening of the distance between the odontoid and the left C1 mass an d recommend CT scan of the cervical spine. 2. 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
--- NOTE | 2021-07-26 10:10 | PC.NURSE ---
Tefla bandage placed over sutures and secured with gauze wrap.
[2021-07-26 10:11] VITALS: BP 112/52; PULSE 83; RESP 13; O2SAT 93
[2021-07-26 10:51] LABS: Basophils % 0.4 %; Eosinophils # 0.1 10^3/uL (0.0-0.8); Eosinophils % 0.4 %; Hematocrit 31.7 % (37.0-47.0); Hemoglobin 10.4 g/dL (11.5-15.3); Lymphocytes # 0.9 10^3/uL (0.8-4.8); Lymphocytes % 8.1 %; Mean Corpuscular HGB Conc 32.8 g/dL (30.0-36.0); Mean Corpuscular Hemoglobin 33.3 pg (28.0-34.0); Mean Corpuscular Volume 101.6 fl (81-99); Mean Platelet Volume 12.3 fL (7.4-10.4); Monocytes # 0.7 10^3/uL (0.2-0.9); Monocytes % 6.5 %; Neutrophils # 9.63 10^3/uL (1.8-7.7); Neutrophils % 84.3 %; Nucleated Red Blood Cells % 0 %; Platelet Count 224 10^3/cmm (130-400); Red Blood Count 3.12 10^6/uL (4.1-5.3); Red Cell Distribution Width 13.4 % (12.1-15.1); White Blood Count 11.4 10^3/uL (4.0-10.0)
--- NOTE | 2021-07-26 10:52 | W.ED.GENADLT ---
HPI - General Adult General: Chief complaint: General Medical Stated complaint: FALL/ DIZZY Time Seen by Provider: 07/26/21 09:50 History of Present Illness: HPI narrative: 81-year-old female presents to the emergency room via EMS. She has a bleeding varicosity on her left anterior distal tibia. She was in the shower she had bent over and it started bleeding evidently started bleeding fairly significantly and persisted despite direct pressure and EMS was called. She thinks she may have fallen but cannot really recall she does not denies any head or neck trauma or pain. She has a c-collar in place that EMS put on. She states she does recall getting dizzy when they found her evidently she was on the floor of the shower. She has some generalized arthritic pains but no other pain at this time. Onset (ago): minute(s) Radiation: non-radiation Severity: mild Pain Consistency: constant Relieving factors: none Exacerbating factors: none Associated symptoms: Deny chest pain, confusion, cough, diaphoresis, decreased appetite, dyspnea, fevers/chills, headache(s), malaise, nausea, rash, palpitations, seizures, short of breath, syncope, vomiting, weakness or other Treatments prior to arrival: none Review of Systems Const: Denies: malaise or diaphoresis ENMT: Denies: throat pain, ear or mastoid pain, nasal discharge or nasal congestion Card: Denies: chest pain, palpitations or syncope Resp: Denies: dyspnea GI: Denies: nausea or vomiting : Denies: flank pain, difficulty voiding, dysuria, urinary frequency or urinary urgency Skin/Breast: Denies: rash Neuro: Denies: headache(s) or confusion [facility] PFSH: Medical History (Updated 07/26/21 @ 12:19 by Ramos Harp DO) Alcohol abuse Hyperlipidemia Hyponatremia Surgical History History of appendectomy History of hemiarthroplasty of right shoulder Tubal ligation status Family History Other CAD (coronary artery disease) Hypertension Social History Smoking and tobacco status: former smoker Alcohol intake: current Alcohol intake frequency: 0-2 Drinks per Day Household members: spouse Housing: House Physical Exam Const: COMMON NORMALS: no acute distress GENERAL APPEARANCE: cooperative and comfortable ORIENTATION/CONSCIOUSNESS: Yes awake, Yes oriented to person, Yes oriented to place and Yes oriented to time HENMT: COMMON NORMALS: normocephalic, atraumatic and hearing grossly normal bilaterally HEAD & SCALP: normocephalic and atraumatic Neck/C-Spine: COMMON NORMALS: no JVD Resp: COMMON NORMALS: normal respiratory effort, No retractions, No use of accessory muscles and clear to auscultation bilaterally AUSCULTATION: clear to auscultation bilaterally Cardio: COMMON NORMALS: no JVD, regular rate, regular rhythm and No murmurs present (Cardio) RATE: regular rate RHYTHM: regular rhythm GI: COMMON NORMALS: Soft to palpation and No hepatosplenomegaly present AUSCULTATION: Yes normoactive bowel sounds PALPATION: Yes Soft to palpation, No Tenderness to palpation present (GI), No Guarding due to palpation present (GI) and Yes No hepatosplenomegaly present Extremity: COMMON NORMALS: normal to inspection, capillary refill normal, no clubbing, cyanosis or edema, no calf tenderness and no pedal edema Neuro: SENSORIUM/ORIENTATION: Yes oriented to person, Yes oriented to place and Yes oriented to time Skin: COMMON NORMALS: no rashes or lesions noted GENERAL SKIN EXAM: no rashes or lesions noted Procedures Laceration Laceration 1: Site: lower extremity Side (If applicable): left Size (cm): 0.5 Description: irregular Depth: simple, single layer Local Anesthetic: lidocaine 1% and with epi Amount of anesthesia used (mL): 3 Skin layer closed with: nylon Size (cm): 4-0 Number of sutures: 1 Course Vital Signs: Vital signs: Vital Signs Temperature 97.6 F 07/26/21 09:49 Pulse Rate 83 07/26/21 10:11 Respiratory Rate 13 07/26/21 10:11 Blood Pressure 112/52 07/26/21 10:11 Pulse Oximetry 93 07/26/21 10:11 MDM - General Adult MDM Narrative: Medical decision making narrative: Plain x-rays of the neck questionable abnormality of C1. CT of the neck is negative for acute fracture. Hemoglobin is stable single pwckut-lh-skesa stitch was placed overlying the varicosity which provided good hemostasis. Apply topical antibiotic to the suture twice daily and remove in 1 week with primary care doctor repeat hemoglobin early next week return to the emergency room for any further problems. I think her fall was precipitated by likely orthostasis with bending over while in a hot shower. Lab Data: Labs: Lab Results 07/26/21 10:45 WBC 11.4 10^3/uL H 10 ^3/uL (4.0-10.0) RBC 3.12 10^6/uL L 10 ^6/uL (4.1-5.3) Hgb 10.4 g/dL L g/dL (11.5-15.3) Hct 31.7 % L % (37.0-47.0) MCV 101.6 fl H fl (81-99) MCH 33.3 pg pg (28.0-34.0) MCHC 32.8 g/dL g/dL (30.0-36.0) RDW 13.4 % % (12.1-15.1) Plt Count 224 10^3/cmm 10^3 /cmm (130-400) MPV 12.3 fL H fL (7.4-10.4) Neut % (Auto) 84.3 % % Lymph % (Auto) 8.1 % % [place] % (Auto) 6.5 % % Eos % (Auto) 0.4 % % Baso % (Auto) 0.4 % % Neut # (Auto) 9.63 10^3/uL H 10 ^3/uL (1.8-7.7) Lymph # (Auto) 0.9 10^3/uL 10^3/ uL (0.8-4.8) [place] # (Auto) 0.7 10^3/uL 10^3/ uL (0.2-0.9) Eos # (Auto) 0.1 10^3/uL 10^3/ uL (0.0-0.8) Baso # (Auto) 0.0 10^3/uL 10^3/ uL (0.0-0.1) Nucleated RBC % (a uto) 0 % % Nucleated RBCs # 0.0 /100WBC /100W BC Discharge Plan Discharge Patient Disposition: Home Clinical Impression: Fall, Bleeding from varicose vein Condition: Stable Prescriptions: New mupirocin 2 % ointment 1 applic topical BID Qty: 15 RF: 0 No Action pravastatin 20 mg tablet 20 mg PO BEDTIME RF: 0 biotin 1 mg tablet 1 mg PO QAM RF: 0 PreserVision AREDS-2 [id number] pu-wjdx-sx-mg capsule 1 tab PO BID RF: 0 multivitamin Tablet 1 tab PO QAM RF: 0 Lidocaine Pain Relief 4 % Adhesive Patch,Medicated 1 patch TOPICAL PRN PRN (Reason: Pain) RF: 0 sodium chloride 1 gram tablet 1 g PO QAM RF: 0 Aspir-81 81 mg Tablet,Delayed Release (Dr/Ec) 81 mg PO QAM RF: 0 oxybutynin chloride 5 mg tablet 5 mg PO BEDTIME PRN (Reason: OVERACTIVE BLADDER) RF: 0 Discharge Orders: Discharge ED (Routine); Ordered 07/26/21 Ordered By: Ramos Harp Discharge Diet: Usual diet Discharge Activity: Resume usual activity Patient Instructions: Opioid Safety Activity Restrictions/Additional Instructions: Move suture in 1 week. Apply topical antibiotic twice daily. Coding Level of Care Code ED Coverstitch Binder for Rohan Fwd Exam Comprehensive
--- NOTE | 2021-07-26 10:56 | CT_ITS ---
WS: [id number] CT CERVICAL SPINE HISTORY: pain, abnormal plain film cervical spine TECHNIQUE: Contiguous 2.5 mm axial imaging performed through the entire cervical spine. Sagittal and coronal reformats also performed. All CT scans at [facility] use at least one of these dose o ptimization techniques: automated exposure control; mA and/or kV adjustment per patient size (include s targeted exams where dose is matched to clinical indication); or iterative reconstruction. DLP: 283.51 mGy.cm COMPARISON: Radiograph 07/26/2020 Diffuse osteopenia and marked increased cervical lordosis. Craniocervical junction is normal. Predent al space is normal. Lateral masses are aligned. C1 and C2 are intact. C2-C3: Mild facet joint narrowing and a small central disc protrusion. No fracture. C3-C4: Severe LEFT facet joint arthritis with mild LEFT foraminal narrowing. No fracture. Shallow zenaida tral disc protrusion. C4-C5: Osteophytic ridging and facet arthritis. Mild foraminal narrowing. C5-C6: Marked osteophytic ridging encroaching upon the ventral thecal sac. Moderate central and sever e bilateral foraminal stenosis. C6-C7: Osteophytic ridging with mild central and foraminal stenosis. C7-T1: Normal. Soft tissues are normal. Lung apices are clear. CT/CT cervical spin wo con* [id number] IMPRESSION: 1. No acute cervical spine fracture. 2. Multilevel central and foraminal stenosis with facet joint arthritis. 3. No odontoid fracture.
--- NOTE | 2021-07-26 11:06 | CT_ITS ---
WS: [id number] CT HEAD NONCONTRAST HISTORY: HEAD PAIN/ FALL TECHNIQUE: Contiguous axial imaging performed through the brain in 2.5 mm imaging. Bone and soft tiss ue windows. Sagittal and coronal reformats reviewed. All CT scans at [facility] use at least one of these dose optimization techniques: automated exposure control; mA and/or kV adjustment per pa tient size (includes targeted exams where dose is matched to clinical indication); or iterative recon struction. DLP: 912.04 mGy.cm COMPARISON: None available. No acute intracranial hemorrhage, midline shift or mass effect. Moderate to severe atrophy and severe chronic confluent white matter ischemic changes. No large emmanuel tory infarct. Ventricles: Ventricles and extra-axial spaces are prominent on the basis of atrophy. Paranasal sinuses: As visualized are clear. Mastoid air cells: Well pneumatized. Calvarium and scalp: Skull is intact with no soft tissue edema or swelling. CT/CT head wo con* [id number] IMPRESSION: 1. No acute intracranial hemorrhage or edema. 2. Moderate to severe atrophy with severe chronic white matter disease.
[2021-07-26 13:16] VITALS: BP 108/52; PULSE 81; RESP 14; O2SAT 96
== END 2021-07-26 13:02 | disposition home or self-care (01) ==
PROVIDERS: Emergency Provider Family Medicine
DX: I83.892 Varicose veins of left lower extremity with other complications (principal); Z79.82 Long term (current) use of aspirin; E78.5 Hyperlipidemia, unspecified; Z87.891 Personal history of nicotine dependence
CPT/HCPCS: 36415; 70450; 72040; 72125; 85025; 99283; A6446

== ENCOUNTER 2021-08-01 17:30 | Emergency (ER) | payer MEDICARE, OTHER, SELFPAY ==
[2021-08-01 17:31] VITALS: BP 107/57; PULSE 101; RESP 17; TEMP 36.7; O2SAT 90
--- NOTE | 2021-08-01 17:48 | XRR_ITS ---
PROCEDURE INFORMATION: Exam: XR Right Knee Exam date and time: 08/01/2021 5:48 PM Age: 81 years old Clinical indication: Injury or trauma; Fall; Blunt trauma; Knee; Right; Additional info: Knee pain TECHNIQUE: Imaging protocol: XR Right knee. Views: 3 views. COMPARISON: CR (LOW EXM, ) 08/01/2021 5:57 PM FINDINGS: Bones/joints: The distal end of an intramedullary haroon is seen in the femur. No sign of loosening. Knee alignment is normal. Joint spaces are preserved. No osteophytes. Bones are diffusely osteopenic. No fracture. No joint effusion. Vascular calcification in the distal thigh. Soft tissues: Visible soft tissues are unremarkable. XR/XR knee RT 3V* [id number] IMPRESSION: No acute findings.
--- NOTE | 2021-08-01 17:48 | CTR_ITS ---
PROCEDURE INFORMATION: Exam: CT Lumbar Spine Without Contrast Exam date and time: 08/01/2021 5:48 PM Age: 81 years old Clinical indication: Injury or trauma; Fall; Blunt trauma (contusions or hematomas); Prior surgery; Additional info: Pain TECHNIQUE: Imaging protocol: Computed tomography images of the lumbar spine without contrast. Radiation optimization: All CT scans at this facility use at least one of these dose optimization techniques: automated exposure control; mA and/or kV adjustment per patient size (includes targeted exams where dose is matched to clinical indication); or iterative reconstruction. COMPARISON: CT thoracic spin wo con* [id number] 08/01/2021 6:11 PM RADIATION DOSE METRICS: Total DLP (mGy-cm): 825.78 FINDINGS: Vertebrae: Spinal alignment is normal. Vertebral body height is maintained. Mild diffuse lumbar facet spondylosis. No acute fracture. Discs/Spinal canal/Neural foramina: Moderate diffuse lumbar disc space narrowing and small uncovertebral osteophytes. Mild to moderate multilevel lumbar spinal stenosis due to degenerative disc and facet disease. Other bones/joints: The visible portion of the pelvis and sacrum is intact. Vasculature: There is moderate aortic atherosclerotic disease. Soft tissues: Paraspinal soft tissues are unremarkable. CT/CT lumbar spine wo con* [id number] IMPRESSION: No acute fracture.
--- NOTE | 2021-08-01 17:48 | XRR_ITS ---
PROCEDURE INFORMATION: Exam: XR Right Tibia and Fibula Exam date and time: 08/01/2021 5:48 PM Age: 81 years old Clinical indication: Injury or trauma; Fall; Blunt trauma; Lower leg; Right; Additional info: Mid shaft tib/fib pain TECHNIQUE: Imaging protocol: XR Right tibia and fibula. Views: 2 views. COMPARISON: No relevant prior studies available. FINDINGS: Bones/joints: Alignment is normal. No acute fracture. Soft tissues: There is vascular calcification in the calf. XR/XR tibia fibula RT 2V [id number] IMPRESSION: No acute findings.
--- NOTE | 2021-08-01 17:48 | CTR_ITS ---
PROCEDURE INFORMATION: Exam: CT Cervical Spine Without Contrast Exam date and time: 08/01/2021 5:48 PM Age: 81 years old Clinical indication: Injury or trauma; Fall; Blunt trauma TECHNIQUE: Imaging protocol: Computed tomography images of the cervical spine without contrast. Radiation optimization: All CT scans at this facility use at least one of these dose optimization techniques: automated exposure control; mA and/or kV adjustment per patient size (includes targeted exams where dose is matched to clinical indication); or iterative reconstruction. COMPARISON: CT cervical spin wo con* [id number] 07/26/2021 11:06 AM RADIATION DOSE METRICS: Total DLP (mGy-cm): 251.21 FINDINGS: Vertebrae: Acis-qf-ghbghdri degenerative changes are observed in the mid to lower cervical spine. No acute fracture is visualized. Spinal alignment is normal. Soft tissues: Unremarkable. Lungs: Mild centrilobular emphysema is appreciated. CT/CT cervical spin wo con* [id number] IMPRESSION: 1. No cervical spine fracture. 2. Mild centrilobular emphysema.
--- NOTE | 2021-08-01 17:48 | CTR_ITS ---
PROCEDURE INFORMATION: Exam: CT Head Without Contrast Exam date and time: 08/01/2021 5:48 PM Age: 81 years old Clinical indication: Injury or trauma; Fall; Blunt trauma (contusions or hematomas) TECHNIQUE: Imaging protocol: Computed tomography of the head without contrast. Radiation optimization: All CT scans at this facility use at least one of these dose optimization techniques: automated exposure control; mA and/or kV adjustment per patient size (includes targeted exams where dose is matched to clinical indication); or iterative reconstruction. COMPARISON: CT head wo con* [id number] 07/26/2021 11:10 AM RADIATION DOSE METRICS: Total DLP (mGy-cm): 845.23 FINDINGS: Brain: Mild brain atrophy and moderate white matter chronic microvascular changes are noted. No hemorrhage or evidence of acute infarction. Cerebral ventricles: No ventriculomegaly. Paranasal sinuses: Visualized sinuses are unremarkable. No fluid levels. Mastoid air cells: Visualized mastoid air cells are well aerated. Bones/joints: Unremarkable. No acute fracture. Soft tissues: Unremarkable. CT/CT head wo con* [id number] IMPRESSION: No acute intracranial abnormality.
--- NOTE | 2021-08-01 17:48 | CTR_ITS ---
PROCEDURE INFORMATION: Exam: CT Thoracic Spine Without Contrast Exam date and time: 08/01/2021 5:48 PM Age: 81 years old Clinical indication: Injury or trauma; Fall; Blunt trauma (contusions or hematomas); Prior surgery; Additional info: Midline tenderness TECHNIQUE: Imaging protocol: Computed tomography images of the thoracic spine without contrast. Radiation optimization: All CT scans at this facility use at least one of these dose optimization techniques: automated exposure control; mA and/or kV adjustment per patient size (includes targeted exams where dose is matched to clinical indication); or iterative reconstruction. COMPARISON: CT cervical spin wo con* [id number] 08/01/2021 6:08 PM RADIATION DOSE METRICS: Total DLP (mGy-cm): 609.6 FINDINGS: Vertebrae: There is a severe T10 superior endplate compression fracture with minimal retropulsion of the posterosuperior cortex. There is a mild T9 inferior endplate compression fracture. There is a mild T8 superior endplate compression fracture. There is a severe T6 superior endplate compression fracture status post vertebroplasty. There is a mild T4 superior endplate compression fracture. There is mild multilevel facet spondylosis. There is a nondisplaced fracture of the T9 spinous process. Acuity is indeterminate. See sagittal series 602, image 48. There is marked thoracic kyphosis. There is no spondylolisthesis. Discs/Spinal canal/Neural foramina: No severe spinal stenosis. Other bones/joints: Visible portions of the ribs are intact. Soft tissues: Unremarkable. Esophagus: The thoracic esophagus is markedly dilated. Lungs: There is mild upper lung predominant centrilobular emphysema. CT/CT thoracic spin wo con* [id number] IMPRESSION: 1. Age-indeterminate T9 spinous process fracture. 2. Multilevel thoracic compression fractures of indeterminate age. 3. Markedly dilated thoracic esophagus.
[2021-08-01] MEDS: oxyCODONE-APAP 5-325 mg Tablet 1 TAB PO (18:01)
--- NOTE | 2021-08-01 18:01 | ED_ITS ---
HPI - General Adult General: Chief complaint: Fall Stated complaint: fall out of chair Time Seen by Provider: 08/01/21 17:31 History of Present Illness: HPI narrative: Patient is an 81-year-old female with a history of fall who presents emergency room after slipping out of a chair while sitting down. Patient fell backwards. Patient denies hitting her head. Patient noticed a large skin tear of her right anterior leg. Patient complains of right ankle, leg and knee pain. Patient also complains of back pain. Denies any associate chest with no shortness with palpitation or lightheadedness prior to the episode fall. Patient is a up-to-date with tetanus. Patient has had recent episode of fall with stitches from last week on the right side. Patient denies any anticoagulation use. No complaints of headache, nausea/vomiting, abdominal complaints, melena/hematochezia or any other issues at this time Onset: 1 hr ago Duration:once Location:home Severity:moderate Associated symptoms: Deny chest pain, dyspnea, nausea, rash, palpitations or vomiting Review of Systems Const: Denies: fever(s) or chills Eyes: Denies: change in vision ENMT: Denies: mouth pain Card: Denies: chest pain or palpitations Resp: Denies: dyspnea or non-productive cough GI: Denies: abdominal pain, nausea, vomiting or diarrhea : Denies: dysuria Musc: Denies: extremity pain Skin/Breast: Denies: rash or new lesions Neuro: Denies: weakness in extremities Psych: Reports: other (Normal mood) Malick/Lymph: Denies: easy bruising PFSH ED PFSH: Medical History (Updated 08/01/21 @ 18:51 by Christin Kim MD) Alcohol abuse Hyperlipidemia Hyponatremia Surgical History History of appendectomy History of hemiarthroplasty of right shoulder Tubal ligation status Family History Other CAD (coronary artery disease) Hypertension Social History Smoking and tobacco status: former smoker Alcohol intake: current Alcohol intake frequency: 0-2 Drinks per Day Household members: spouse Housing: House Physical Exam Const: COMMON NORMALS: alert HENMT: COMMON NORMALS: atraumatic HEAD & SCALP: atraumatic MOUTH: moist mucous membranes not abnormal Eye: COMMON NORMALS: EOMs intact bilaterally and conjunctivae normal CONJUNCTIVA: Yes conjunctivae normal Neck/C-Spine: COMMON NORMALS: full ROM and supple Resp: COMMON NORMALS: normal respiratory effort and clear to auscultation bilaterally AUSCULTATION: clear to auscultation bilaterally Cardio: COMMON NORMALS: regular rate RATE: regular rate GI: COMMON NORMALS: Soft to palpation and non-tender PALPATION: Yes Soft to palpation Extremity: COMMON NORMALS: full ROM NARRATIVE EXTREMITY EXAM: +anterior R joshi skin tear measuring 10cm in largest dimension, +mild midshaft R tib/fib tenderness to palpation, +R knee TTP, +R ankle b/l tenderness to palpation, no foot TTP, neurovascular exam intact in the RLE. Neuro: SENSORIUM/ORIENTATION: Yes alert MOTOR EXAM: No Abnormal motor strength present and Other motor observations present (no focal motor deficits) Psych: COMMON NORMALS: speech normal SPEECH: Yes normal speech MOOD & AFFECT: Yes euthymic mood Course Vital Signs: Vital signs: Vital Signs Temperature 98.1 F 08/01/21 17:31 Pulse Rate 94 08/01/21 18:31 Respiratory Rate 17 08/01/21 17:31 Blood Pressure 127/64 08/01/21 18:31 Pulse Oximetry 97 08/01/21 18:31 MDM - General Adult MDM Narrative: Medical decision making narrative: Patient is an 81-year-old female presents emergency room for evaluation of fall. Patient is complaining of midline C/T/L back pain worse in the thoracic area. Patient has right knee right tib-fib, right ankle pain CT T spine multiple thoracic fractures of unknown duration. Patient has no signs of cord compression cauda equina. Patient has a hx of these fractures and a TLSO brace at home. When offered brace here, patient declined, citing that she has one at home. X-ray of the right lower extremity not showing signs of acute fracture. Has a copy of the CT report and reassures me she will follow-up with Orthoepdics. I have given patient follow up with our case management director to be seen by Orthopedic spines for multiple thoracic fracture of unknown duration. Patient aware of a call from our case management director to schedule for appointment(s) and verbalizes understanding of the importance of following up. Patient is placed in a TLSO brace with instruction to wear at all times. I have discussed with patient that should she have any worsening pain that she needs repeat x-ray in 1 week I have given patient follow up with our case management director to be seen by our outpatient PCP for wound. Patient aware of a call from our case management director to schedule for appointment(s) and verbalizes understanding of the importance of following up. Rx mupiricin and vaseline for skin tear, tylenol/lidocaine patch/menthol PRN pain Disposition: Discharge. Patient counseled regarding diagnostic impression, treatment plan. Patient given ED strict return precautions to return for continuation, worsening, or development of new symptoms. Instructed to f/u w/ PCP regarding symptoms today. Patient verbalized understanding. Imaging Data^: Other Imaging: Radiologist's impression: [address] [address]XJuv ReportSigned Patient: Beryl Gibbs #: [id number]: 1940Acct#:[id number]/Sex: 81 / FADM Date: 08/01/21Loc: ERRoom/Bed:Attending Dr: Ordering Provider/Ordering MD: Christin Kim MD Date of Service: 08/01/21 Procedure(s): XR tibia fibula RT 2V 69255 Accession Number(s): [id number] Report Number: [id number] PROCEDURE INFORMATION: Exam: XR Right Tibia and Fibula Exam date and time: 08/01/2021 5:48 PM Age: 81 years old Clinical indication: Injury or trauma; Fall; Blunt trauma; Lower leg; Right; Additional info: Mid shaft tib/fib pain TECHNIQUE: Imaging protocol: XR Right tibia and fibula. Views: 2 views. COMPARISON: No relevant prior studies available. FINDINGS: Bones/joints: Alignment is normal. No acute fracture. Soft tissues: There is vascular calcification in the calf. XR/XR tibia fibula RT 2V [id number] IMPRESSION: No acute findings. Dictated By:Nestor Blancas MDSigned By:Nestor Blancas MDSigned Date/Time:08/01/21 1819DD/ 1748 [facility] [place], [place] [address]YH Scan ReportSigned Patient: Beryl Gibbs #: [id number]: 1940Acct#:[id number]/Sex: 81 / FADM Date: 08/01/21Loc: ERRoom/Bed:Attending Dr: Ordering Provider/Ordering MD: Christin Kim MD Date of Service: 08/01/21 Procedure(s): CT thoracic spin wo con* [id number] Accession Number(s): [id number] Report Number: [id number] PROCEDURE INFORMATION: Exam: CT Thoracic Spine Without Contrast Exam date and time: 08/01/2021 5:48 PM Age: 81 years old Clinical indication: Injury or trauma; Fall; Blunt trauma (contusions or hematomas); Prior surgery; Additional info: Midline tenderness TECHNIQUE: Imaging protocol: Computed tomography images of the thoracic spine without contrast. Radiation optimization: All CT scans at this facility use at least one of these dose optimization techniques: automated exposure control; mA and/or kV adjustment per patient size (includes targeted exams where dose is matched to clinical indication); or iterative reconstruction. COMPARISON: CT cervical spin wo con* [id number] 08/01/2021 6:08 PM RADIATION DOSE METRICS: Total DLP (mGy-cm): 609.6 FINDINGS: Vertebrae: There is a severe T10 superior endplate compression fracture with minimal retropulsion of the posterosuperior cortex. There is a mild T9 inferior endplate compression fracture. There is a mild T8 superior endplate compression fracture. There is a severe T6 superior endplate compression fracture status post vertebroplasty. There is a mild T4 superior endplate compression fracture. There is mild multilevel facet spondylosis. There is a nondisplaced fracture of the T9 spinous process. Acuity is indeterminate. See sagittal series 602, image 48. There is marked thoracic kyphosis. There is no spondylolisthesis. Discs/Spinal canal/Neural foramina: No severe spinal stenosis. Other bones/joints: Visible portions of the ribs are intact. Soft tissues: Unremarkable. Esophagus: The thoracic esophagus is markedly dilated. Lungs: There is mild upper lung predominant centrilobular emphysema. CT/CT thoracic spin wo con* [id number] IMPRESSION: 1. Age-indeterminate T9 spinous process fracture. 2. Multilevel thoracic compression fractures of indeterminate age. 3. Markedly dilated thoracic esophagus. Dictated By:Nestor Blancas MDSigned By:Nestor Blancas MDSigned Date/ Time:08/01/21 1836DD/ [address] [address]VP Scan ReportSigned Patient: Beryl Gibbs #: [id number]: 1940Acct#:[id number]/Sex: 81 / FADM Date: 08/01/21Loc: ERRoom/Bed:Attending Dr: Ordering Provider/Ordering MD: Christin Kim MD Date of Service: 08/01/21 Procedure(s): CT lumbar spine wo con* 59951 Accession Number(s): [id number] Report Number: [id number] PROCEDURE INFORMATION: Exam: CT Lumbar Spine Without Contrast Exam date and time: 08/01/2021 5:48 PM Age: 81 years old Clinical indication: Injury or trauma; Fall; Blunt trauma (contusions or hematomas); Prior surgery; Additional info: Pain TECHNIQUE: Imaging protocol: Computed tomography images of the lumbar spine without contrast. Radiation optimization: All CT scans at this facility use at least one of these dose optimization techniques: automated exposure control; mA and/or kV adjustment per patient size (includes targeted exams where dose is matched to clinical indication); or iterative reconstruction. COMPARISON: CT thoracic spin wo con* [id number] 08/01/2021 6:11 PM RADIATION DOSE METRICS: Total DLP (mGy-cm): 825.78 FINDINGS: Vertebrae: Spinal alignment is normal. Vertebral body height is maintained. Mild diffuse lumbar facet spondylosis. No acute fracture. Discs/Spinal canal/Neural foramina: Moderate diffuse lumbar disc space narrowing and small uncovertebral osteophytes. Mild to moderate multilevel lumbar spinal stenosis due to degenerative disc and facet disease. Other bones/joints: The visible portion of the pelvis and sacrum is intact. Vasculature: There is moderate aortic atherosclerotic disease. Soft tissues: Paraspinal soft tissues are unremarkable. CT/CT lumbar spine wo con* [id number] IMPRESSION: No acute fracture. Dictated By:Nestor Blancas MDSigned By:Nestor Blancas MDSigned Date/Time:08/01/21/ [address], [place] [address]AOtc ReportSigned Patient: Beryl Gibbs #: [id number]: 1940Acct#:[id number]/Sex: 81 / FADM Date: 08/01/21Loc: ERRoom/Bed:Attending Dr: Ordering Provider/Ordering MD: Christin Kim MD Date of Service: 08/01/21 Procedure(s): XR knee RT 3V* 61511 Accession Number(s): [id number] Report Number: [id number] PROCEDURE INFORMATION: Exam: XR Right Knee Exam date and time: 08/01/2021 5:48 PM Age: 81 years old Clinical indication: Injury or trauma; Fall; Blunt trauma; Knee; Right; Additional info: Knee pain TECHNIQUE: Imaging protocol: XR Right knee. Views: 3 views. COMPARISON: CR (LOW EXM, ) 08/01/2021 5:57 PM FINDINGS: Bones/joints: The distal end of an intramedullary haroon is seen in the femur. No sign of loosening. Knee alignment is normal. Joint spaces are preserved. No osteophytes. Bones are diffusely osteopenic. No fracture. No joint effusion. Vascular calcification in the distal thigh. Soft tissues: Visible soft tissues are unremarkable. XR/XR knee RT 3V* [id number] IMPRESSION: No acute findings. Dictated By:Nestor Blancas MDSigned By:Nestor Blancas MDSigned Date/Time:08/01/21/ [address], [place] [address]TR Scan ReportSigned Patient: Beryl Gibbs #: [id number]: 1940Acct#:[id number]/Sex: 81 / FADM Date: 08/01/21Loc: ERRoom/Bed:Attending Dr: Ordering Provider/Ordering MD: Christin Kim MD Date of Service: 08/01/21 Procedure(s): CT cervical spin wo con* [id number] Accession Number(s): [id number] Report Number: [id number] PROCEDURE INFORMATION: Exam: CT Cervical Spine Without Contrast Exam date and time: 08/01/2021 5:48 PM Age: 81 years old Clinical indication: Injury or trauma; Fall; Blunt trauma TECHNIQUE: Imaging protocol: Computed tomography images of the cervical spine without contrast. Radiation optimization: All CT scans at this facility use at least one of these dose optimization techniques: automated exposure control; mA and/or kV adjustment per patient size (includes targeted exams where dose is matched to clinical indication); or iterative reconstruction. COMPARISON: CT cervical spin wo con* [id number] 07/26/2021 11:06 AM RADIATION DOSE METRICS: Total DLP (mGy-cm): 251.21 FINDINGS: Vertebrae: Uyse-yw-uuzrdlfi degenerative changes are observed in the mid to lower cervical spine. No acute fracture is visualized. Spinal alignment is normal. Soft tissues: Unremarkable. Lungs: Mild centrilobular emphysema is appreciated. CT/CT cervical spin wo con* [id number] IMPRESSION: 1. No cervical spine fracture. 2. Mild centrilobular emphysema. Dictated By:Jonatan Elaine MDSigned By:Jonatan Elaine MDSigned Date/Time:08/01/21 1832DD/ [address] [address]DA Scan ReportSigned Patient: Beryl Gibbs #: [id number]: 1940Acct#:[id number]/Sex: FADM Date: 07/26/21Loc: ERRoom/Bed:Attending Dr: Ordering Provider/Ordering MD: Ramos Harp DO Date of Service: 07/26/21 Procedure(s): CT head wo con* 06298 Accession Number(s): [id number] Report Number: [id number] WS: [id number] CT HEAD NONCONTRAST HISTORY: HEAD PAIN/ FALL TECHNIQUE: Contiguous axial imaging performed through the brain in 2.5 mm imaging. Bone and soft tissue windows. Sagittal and coronal reformats reviewed. All CT scans at [facility] use at least one of these dose optimization techniques: automated exposure control; mA and/or kV adjustment per patient size (includes targeted exams where dose is matched to clinical indication); or iterative reconstruction. DLP: 912.04 mGy.cm COMPARISON: None available. No acute intracranial hemorrhage, midline shift or mass effect. Moderate to severe atrophy and severe chronic confluent white matter ischemic c hanges. No large territory infarct. Ventricles: Ventricles and extra-axial spaces are prominent on the basis of atrophy. Paranasal sinuses: As visualized are clear. Mastoid air cells: Well pneumatized. Calvarium and scalp: Skull is intact with no soft tissue edema or swelling. CT/CT head wo con* [id number] IMPRESSION: 1. No acute intracranial hemorrhage or edema. 2. Moderate to severe atrophy with severe chronic white matter disease. Dictated By:Rachel Johnson DOSigned By:Rachel Johnson DOSigned Date/Time:07/26/21 1138DD/ 1135 Discharge Plan Discharge Patient Disposition: Home Clinical Impression: Skin tear, Fall, Back fracture Condition: Stable Prescriptions: New acetaminophen 500 mg tablet 500 mg PO Q6H PRN (Reason: pain) 5 Days Qty: 20 RF: 0 lidocaine 5 % adhesive patch,medicated 1 patch topical DAILY PRN (Reason: pain) 30 Days Qty: 30 RF: 0 orphenadrine citrate 100 mg tablet extended release 100 mg PO BID PRN (Reason: pain) 10 Days Qty: 20 RF: 0 Biofreeze (menthol) 5 % gel 1 ea topical BID PRN (Reason: pain) 10 Days Qty: 1 RF: 0 No Action pravastatin 20 mg tablet 20 mg PO BEDTIME RF: 0 biotin 1 mg tablet 1 mg PO QAM RF: 0 PreserVision AREDS-2 [id number] pa-yaxx-hs-mg capsule 1 tab PO BID RF: 0 multivitamin Tablet 1 tab PO QAM RF: 0 Lidocaine Pain Relief 4 % Adhesive Patch,Medicated 1 patch TOPICAL PRN PRN (Reason: Pain) RF: 0 sodium chloride 1 gram tablet 1 g PO QAM RF: 0 Aspir-81 81 mg Tablet,Delayed Release (Dr/Ec) 81 mg PO QAM RF: 0 oxybutynin chloride 5 mg tablet 5 mg PO BEDTIME PRN (Reason: OVERACTIVE BLADDER) RF: 0 mupirocin 2 % ointment 1 applic topical BID Qty: 15 RF: 0 Discharge Orders: Discharge ED (Routine); Ordered 08/01/21 Ordered By: Christin Kim Discharge Diet: Advance as tolerated Discharge Activity: Increase activity as tolerated Patient Instructions: Back Pain (ED), Thoracolumbosacral Orthosis (DC) Activity Restrictions/Additional Instructions: Our case management director will have you follow-up with Orthopedic surgery for your back fractures in the next few days. You would be expected to have a phone call with our case management director who will put you on the schedule. Please wear your brace in the mean time. Here's your CT report: [employer] [address]FP Scan ReportSigned Patient: Beryl Gibbs #: [id number]: 1940Acct#:[id number]/Sex: 81 / FADM Date: 08/01/21Loc: ERRoom/Bed:Attending Dr: Ordering Provider/Ordering MD: Christin Kim MD Date of Service: 08/01/21 Procedure(s): CT thoracic spin wo con* [id number] Accession Number(s): [id number] Report Number: [id number] PROCEDURE INFORMATION: Exam: CT Thoracic Spine Without Contrast Exam date and time: 08/01/2021 5:48 PM Age: 81 years old Clinical indication: Injury or trauma; Fall; Blunt trauma (contusions or hematomas); Prior surgery; Additional info: Midline tenderness TECHNIQUE: Imaging protocol: Computed tomography images of the thoracic spine without contrast. Radiation optimization: All CT scans at this facility use at least one of these dose optimization techniques: automated exposure control; mA and/or kV adjustment per patient size (includes targeted exams where dose is matched to clinical indication); or iterative reconstruction. COMPARISON: CT cervical spin wo con* [id number] 08/01/2021 6:08 PM RADIATION DOSE METRICS: Total DLP (mGy-cm): 609.6 FINDINGS: Vertebrae: There is a severe T10 superior endplate compression fracture with minimal retropulsion of the posterosuperior cortex. There is a mild T9 inferior endplate compression fracture. There is a mild T8 superior endplate compression fracture. There is a severe T6 superior endplate compression fracture status post vertebroplasty. There is a mild T4 superior endplate compression fracture. There is mild multilevel facet spondylosis. There is a nondisplaced fracture of the T9 spinous process. Acuity is indeterminate. See sagittal series 602, image 48. There is marked thoracic kyphosis. There is no spondylolisthesis. Discs/Spinal canal/Neural foramina: No severe spinal stenosis. Other bones/joints: Visible portions of the ribs are intact. Soft tissues: Unremarkable. Esophagus: The thoracic esophagus is markedly dilated. Lungs: There is mild upper lung predominant centrilobular emphysema. CT/CT thoracic spin wo con* [id number] IMPRESSION: 1. Age-indeterminate T9 spinous process fracture. 2. Multilevel thoracic compression fractures of indeterminate age. 3. Markedly dilated thoracic esophagus. Dictated By:Nestor Blancas MDSigned By:Nestor Blancas MDSigned Date/Time:08/01/21 1836DD/ 1748 Coding Level of Care Code ED Mastic Floor Layer for Chg Fwd Exam Comprehensive
[2021-08-01] MEDS: tetanus-dipt-pertussis 0.5 mL SDV IM (18:26)
[2021-08-01] MEDS: mupirocin oint 22 gm 1 APPLIC TOPICAL (18:29)
[2021-08-01 18:31] VITALS: BP 127/64; PULSE 94; O2SAT 97
--- NOTE | 2021-08-01 19:25 | PC.NURSE ---
patient took fall backwards out of chair. she sits on pillows due to chair being low. No LOC. She has T-[address] ordered TLSO brace. upon talking with the family they state this has been on ongoing issue with the patient and is not new. Informed Dr Kim and he is to speak with the pt/family.
--- NOTE | 2021-08-01 19:27 | PC.NURSE ---
Physician spoke with the pt/family and they do not want the brace. patient has been followed by spinal specialist.
[2021-08-01 20:03] VITALS: BP 131/65; PULSE 93; RESP 17; O2SAT 98
--- NOTE | 2021-08-02 09:21 | DCPLANNER ---
route manager had message to schedule a follow up appointment for patient with ortho. route manager called the ortho clinic, spoke with Kaykay, gave clinic patients information. route manager was told that patients information will be printed and reviewed. Clinic will call patient with appointment information.
--- NOTE | 2021-08-05 07:54 | DCPLANNER ---
Patient has a follow up appointment scheduled for Friday, August 06, 2021 at 1:30 with Rufino GARNER. Clinic will call patient with appointment information.
--- NOTE | 2021-08-05 15:38 | DCPLANNER ---
Addendum entered by Keisha Gandara 08/22/21 15:01: Patient had a follow up appointment scheduled for 08.06.21 with ortho - patient did not attend appointment. Original Note: ship manager had message to speak with patient about getting established and scheduling a follow up appointment with a primary care physician. ship manager unable to speak with patient at this time.
== END 2021-08-01 19:40 | disposition home or self-care (01) ==
PROVIDERS: Emergency Provider Emergency Medicine
DX: S81.811A Laceration without foreign body, right lower leg, initial encounter (principal); S22.079A Unspecified fracture of T9-T10 vertebra, initial encounter for closed fracture; S22.069A Unspecified fracture of T7-T8 vertebra, initial encounter for closed fracture; S22.059A Unspecified fracture of T5-T6 vertebra, initial encounter for closed fracture; S22.049A Unspecified fracture of fourth thoracic vertebra, initial encounter for closed fracture; W07.XXXA Fall from chair, initial encounter; E78.5 Hyperlipidemia, unspecified; Z87.891 Personal history of nicotine dependence; Z23 Encounter for immunization
CPT/HCPCS: 70450; 72125; 72128; 72131; 73562; 73590; 90471; 90715; 99283

== ENCOUNTER 2021-09-24 15:09 | Outpatient (CLI) | payer MEDICARE, OTHER, SELFPAY ==
--- NOTE | 2021-09-24 15:15 | USCV_ITS ---
Beryl Gibbs Age: 81 Gender: F : 1940 Exam Date: 09/24/2021 15:25 Ordering Phys: Ciera Shepherd Technologist: Carolee Gallego [place] [facility] [place] Indication: Elevated brain natriuretic peptide BP: 130 / 78 HR: 80 Rhythm: Sinus Technical Quality: Adequate MEASUREMENTS (Male / Female) Normal Values 2D ECHO LV Diastolic Diameter PLAX 5.2 cm 4.2 - 5.9 / 3.9 - 5.3 cm LV Systolic Diameter PLAX 4.3 cm IVS Diastolic Thickness 1.1 cm 0.6 - 1.0 / 0.6 - 0.9 cm IVS Systolic Thickness 1.1 cm LVPW Diastolic Thickness 1.1 cm 0.6 - 1.0 / 0.6 - 0.9 cm LVPW Systolic Thickness 1.4 cm LVOT Diameter 2.0 cm LV Ejection Fraction 2D Teich 32.8 % LV Ejection Fraction MOD 2C 32.0 % LV Ejection Fraction 2C AL 29.5 % LA Diameter 2.6 cm LA Width 3.7 cm LA Height 4.6 cm RA Width 3.7 cm RA Height 4.2 cm Aorta at Sinotubular Diameter 2.3 cm M-MODE Aortic Annulus Diameter 3.0 cm LA Ao Ratio MM 1.0 MV E Point Septal Separation 1.7 cm DOPPLER AV Peak Velocity 141.0 cm/s LVOT Peak Velocity 97.0 cm/s AV Area Cont Eq vti 1.9 cm squared AV Area Cont Eq pk 2.2 cm squared MV Area PHT 5.0 cm squared Mitral E to A Ratio 0.6 MV E' Velocity 35.5 cm/s Mitral E to MV E' Ratio 8.9 Mitral E to LV E' Lateral Ratio 8.1 Mitral E to LV E' Septal Ratio 10.1 TR Peak Velocity 225.7 cm/s TR Peak Gradient 20.4 mmHg TR Mean Velocity 177.1 cm/s TR Mean Gradient 13.3 mmHg TR Velocity Time Integral 60.5 cm TV Peak E Velocity 47.0 cm/s Right Atrial Pressure 3.0 mmHg Pulmonary Artery Systolic Pressu 23.4 mmHg PV Peak Velocity 89.0 cm/s RV Acceleration Time 0.1 s RV Ejection Time 0.3 s RV AcT/ET 0.4 FINDINGS Left Ventricle Diffuse hypokinesia of the left toe noted with ejection fraction of around 30%. Mild concentric left hypertrophy.Grade I/IV diastolic dysfunction (abnormal relaxation filling pattern), normal to mildly elevated filling pressures. Right Ventricle Normal right ventricular size and systolic function. Right Atrium Normal right atrial size. Left Atrium Mildly increased left atrial size. Mitral Valve Thickened mitral valve. Aortic Valve Thickened aortic valve. Tricuspid Valve Mild tricuspid valve regurgitation. Pulmonic Valve Mild pulmonary valve regurgitation. Pericardium Normal pericardium without effusion. Aorta Normal ascending aorta dimension. CONCLUSIONS Diffuse hypokinesia of the left toe noted with ejection fraction of around 30%. Mild concentric left hypertrophy.Grade I/IV diastolic dysfunction (abnormal relaxation filling pattern), normal to mildly elevated filling pressures. Mildly increased left atrial size. Thickened aortic valve. Mild tricuspid valve regurgitation. Mild pulmonary valve regurgitation. Estimated pulmonary artery peak systolic pressure of 23 mmHg There is no pericardial effusion. There are no intracardiac masses. No previous study is available for comparison. Dr Diya Marquez MD [facility] (Electronically Signed) Final Date: 25 September 2021 07:31 S
== END 2021-09-24 15:10 | disposition home or self-care (01) ==
LOC: RAD 15:10
PROVIDERS: Visit Provider Nurse Practitioner Family
DX: R79.89 Other specified abnormal findings of blood chemistry (principal); I08.2 Rheumatic disorders of both aortic and tricuspid valves
CPT/HCPCS: 93306

== ENCOUNTER 2021-11-19 10:14 | Outpatient (CLI) | payer MEDICARE, OTHER, SELFPAY ==
--- NOTE | 2021-11-19 10:25 | NMCV_ITS ---
NM nicolas perf SPECT r/s* [id number] Beryl Gibbs Age: 81 Gender: F : 1940 Exam Date: 11/19/2021 11:39 Ordering Phys: Ciera Shepherd Technologist: ANNEMARIE Smith Exam Location: [facility] Indications: HEART FAILURE WITH REDUCED EF STRESS TEST Please see separate stress test report in [facility] for full findings IMAGE PROTOCOL Rest/Stress 1 Lexiscan Day Radiopharmaceutical Dose (mCi) Administration Site Administered by Rest: Tc-99m 10.8 IV ANNEMARIE Smith Sestamibi Stress:Tc-99m 32.5 IV ANNEMARIE Smith Sestamibi Rest: 19-Nov-2021 60 Discovery 630 Stress: 19-Nov-2021 30 Discovery 630 0.4mg Lexiscan. Supine position only as patient was unable to lay prone. SPECT RESULTS Technical Quality: Excellent Raw Data Analysis: Normal Image Corrections: No attenuation or motion correction applied Summed Stress Score: 7 Summed Rest Score: 12 Summed Difference Score: 0 PERFUSION FINDINGS There is a moderate sized, fixed perfusion defect noted in the apical, apical lateral and inferolateral bland. 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 Abnormal myocardial perfusion imaging with moderate sized prior infarct noted in the apical, apical lateral and inferolateral bland. No evidence of ischemia 2. LV systolic function is mildly reduced Riley Peralta MD (Electronically Signed) Final Date: 25 Nov 2021 08:28 S
--- NOTE | 2021-11-19 10:25 | ECG_ITS ---
[facility] Test Date: 2021-11-19 Pat Name: Beryl Gibbs Department: Room: Gender: Female Transcribing Operator Head: : 1940 Requested By: Ciera Shepherd Order Number: [id number] Small MD: Riley Peralta M.D. Interpretive Statements NAME OF STUDY: LEXISCAN SESTAMIBI STRESS TEST INDICATION: [Heart Failure, New Onset, ] Procedure: At the baseline, the blood pressure was 149/66 mmHg with a heart rate of 68 bpm. The electrocardiogram showed normal sinus rhythm, left ventricular hypertrophy with normal ST and T's. The Lexiscan was infused over a period of 20 seconds. A total of 0.4 mg of Lexiscan was infused. The stress phase was continued for a total of 5 minutes. Heart rate was at the end of stress phase was 82 bpm and a blood pressure of 153/58 mmHg. The EKG at the peak infusion revealed normal sinus rhythm with no significant ST-T wave changes. Sestamibi was injected 20 seconds after the Lexiscan infusion. Blood pressure at the end of recovery phase was 134/52 mmHg with a heart rate of 84 bpm. Conclusion: 1. Normal EKG response to Lexiscan infusion 2. No Lexiscan induced chest pain or cardiac arrhythmia. 3. Normal blood pressure and heart rate response. 4. Sestamibi/sestamibi perfusion scan pending; see separate report. Electronically Signed On 12-16-2021 20:07:45 CDT by Riley Peralta M.D. [id number]
[2021-11-19 10:57] VITALS: BMI 16.2
[2021-11-19] MEDS: regadenoson 0.4 Mg/5 ml Syringe IVP (12:11)
[2021-11-19 12:34] VITALS: BP 134/53; PULSE 83
== END 2021-11-19 10:15 | disposition home or self-care (01) ==
LOC: CDL 10:19
PROVIDERS: PCP Nurse Practitioner Family; Visit Provider Nurse Practitioner Family
DX: I50.20 Unspecified systolic (congestive) heart failure (principal)
CPT/HCPCS: 78452; 93017; A9500; J2785

== ENCOUNTER 2022-09-02 08:29 | Outpatient (CLI) | payer MEDICARE, OTHER, SELFPAY ==
--- NOTE | 2022-09-02 08:44 | USCV_ITS ---
Beryl Gibbs Age: 82 Gender: F : 1940 Exam Date: 09/02/2022 09:26 Ordering Phys: Anneliese Chi MD Technologist: Landon Valerio Exam Location: [facility] Indication: Hypertension BP: 122 / 24 HR: 68 Rhythm: Sinus Technical Quality: Adequate MEASUREMENTS (Male / Female) Normal Values 2D ECHO LV Diastolic Diameter PLAX 5.8 cm 4.2 - 5.9 / 3.9 - 5.3 cm LV Systolic Diameter PLAX 5.1 cm IVS Diastolic Thickness 0.7 cm 0.6 - 1.0 / 0.6 - 0.9 cm IVS Systolic Thickness 0.9 cm LVPW Diastolic Thickness 1.1 cm 0.6 - 1.0 / 0.6 - 0.9 cm LVPW Systolic Thickness 1.4 cm LVOT Diameter 1.9 cm LV Ejection Fraction 2D Teich 23.7 % LV Ejection Fraction MOD 2C 33.3 % LV Ejection Fraction 2C AL 31.9 % LA Diameter 3.2 cm LA Width 3.4 cm LA Height 4.6 cm RA Width 3.5 cm RA Height 3.8 cm Aorta at Sinotubular Diameter 2.2 cm IVC Diameter 1.7 cm M-MODE Aortic Annulus Diameter 3.1 cm LA Ao Ratio MM 1.0 MV E Point Septal Separation 1.7 cm DOPPLER AV Peak Velocity 145.7 cm/s LVOT Peak Velocity 65.0 cm/s AV Area Cont Eq vti 1.3 cm squared AV Area Cont Eq pk 1.2 cm squared MV Peak Velocity 100.0 cm/s MV Area PHT 2.6 cm squared Mitral E to A Ratio 0.6 MV E' Velocity 25.5 cm/s Mitral E to MV E' Ratio 7.7 Mitral E to LV E' Lateral Ratio 6.5 Mitral E to LV E' Septal Ratio 9.5 TR Peak Velocity 313.6 cm/s TR Peak Gradient 39.3 mmHg TR Mean Velocity 247.9 cm/s TR Mean Gradient 26.1 mmHg TR Velocity Time Integral 103.8 cm Right Atrial Pressure 3.0 mmHg Pulmonary Artery Systolic Pressu 42.3 mmHg PV Peak Velocity 93.0 cm/s RV Acceleration Time 0.1 s RV Ejection Time 0.3 s RV AcT/ET 0.4 FINDINGS Left Ventricle Dilated left ventricular cavity size. Increased left ventricular wall thickness. Severely decreased left ventricular systolic function. Left ventricular ejection fraction is estimated at 25 %. Severe global left ventricular hypokinesis. Grade I diastolic dysfunction (abnormal relaxation filling pattern), normal to mildly elevated filling pressures. Right Ventricle Normal right ventricular size and systolic function. Right ventricular systolic pressure 42.3 mmHg. Right Atrium Normal right atrial size. Left Atrium Moderately increased left atrial size. Mitral Valve Mildly thickened mitral valve. No mitral valve stenosis. Mild mitral valve regurgitation. Aortic Valve Structurally normal trileaflet aortic valve. No aortic valve stenosis. No aortic valve regurgitation. Tricuspid Valve Structurally normal tricuspid valve. No tricuspid valve stenosis. Trace to mild tricuspid valve regurgitation. Pulmonic Valve Structurally normal pulmonic valve. No pulmonary valve stenosis. Mild to moderate pulmonary valve regurgitation. Pericardium No pericardial effusion. Aorta Normal size aortic root and proximal ascending aorta. IVC Normal IVC dimension with >50% respiratory change of the inferior vena cava. CONCLUSIONS 1/ Dilated left ventricular cavity size. Increased left ventricular wall thickness. Severely decreased left ventricular systolic function. Left ventricular ejection fraction is estimated at 25 %. Severe global left ventricular hypokinesis. Grade I diastolic dysfunction (abnormal relaxation filling pattern), normal to mildly elevated filling pressures. 2. Mild to moderate pulmonary valve regurgitation. 3. When compared to study dated 09/24/2021, there may not have been any significant change. Jacki Mari MD (Electronically Signed) Final Date: 10 September 2022 22:43 S
== END 2022-09-02 08:30 | disposition home or self-care (01) ==
LOC: RAD 08:30
PROVIDERS: PCP Nurse Practitioner Family; Visit Provider Internal Medicine Interventional Cardiology
DX: I10 Essential (primary) hypertension (principal)
CPT/HCPCS: 93306

== ENCOUNTER 2025-06-22 10:45 | Observation (INO) | payer MEDICARE, OTHER, SELFPAY ==
[2025-06-22] VITALS (8 sets, daily range): BP systolic 111–141; BP diastolic 40–72; PULSE 0–97; RESP 15–18; TEMP 36.5–36.7; O2SAT 90–98; BMI 19.7; BMI 14.8
--- NOTE | 2025-06-22 10:59 | CT_ITS ---
WS: [id number] CT HEAD TECHNIQUE: Noncontrast CT of the head obtained from the skullbase to the vertex. CLINICAL INFORMATION: syncope COMPARISON: 2021 DLP: 1110.[address] scans at [facility] use at least one of these dose optimization techniques: automated exposure control; mA and/or kV adjustment per patient size (includes targeted exams where dose is matched to clinical indication); or iterative reconstruction. FINDINGS: No evidence of intracranial hemorrhage or mass effect. Ventricular system and basal cisterns are patent. Moderate small vessel changes with moderate parenchymal volume loss. No extra-axial fluid collections. No evidence of mass or mass effect. Vascular calcification. Slight sphenoid sinusitis with a few secretions. Paranasal sinuses are otherwise well aerated. Mastoid air cells are well aerated. CT/CT head wo con* [id number] IMPRESSION: 1. No evidence of intracranial hemorrhage or mass effect. 2. No acute intracranial findings.
--- NOTE | 2025-06-22 10:59 | ECG_ITS ---
[facility] Test Date: 2025-06-22 Pat Name: Beryl Gibbs Department: Room: Gender: Female Crtts: : 1940 Requested By: Ramos Smith Order Number: [id number] Staci MD: Diya Marquez M.D. Measurements Intervals [place] Rate: 85 P: 0 AK: 0 QRS: -46 QRSD: 113 T: 56 QT: 436 QTc: 521 Interpretive Statements SUPRAVENTRICULAR RHYTHM LEFT ANTERIOR FASCICULAR BLOCK [QRS AXIS <= -45, QR IN I, RS IN II] ANTERIOR MYOCARDIAL INFARCTION , PROBABLY RECENT [40+ ms Q WAVE AND/OR ST/T ABNORMALITY IN V3/V4] ACUTE CA No previous ECG available for comparison Electronically Signed On 06-23-2025 18:47:57 [employer] by Diya Marquez M.D. [id number] [id number]
[2025-06-22 11:13] LABS: Hematocrit 37.1 % (36-47); Hemoglobin 12.10 g/dL (11.27-16.99); Mean Corpuscular HGB Conc 32.6 g/dL (30-55); Mean Corpuscular Hemoglobin 31.3 pg (27-33); Mean Corpuscular Volume 95.9 fl (85-98); Nucleated Red Blood Cells % 0 %; Platelet Count 274 10^3/cmm (157-399); Red Blood Count 3.87 10^6/uL (3.85-5.65); White Blood Count 11.94 10^3/uL (3.29-11.43)
[2025-06-22 11:39] LABS: Alanine Aminotransferase 11 U/L (0-33); Albumin Level 3.8 g/dL (3.5-5.2); Alkaline Phosphatase 86 U/L (35-105); Anion Gap 15.3 (5-19); Aspartate Amino Transferase 24 U/L (0-32); Blood Urea Nitrogen 23 mg/dL (8-23); Calcium 8.8 mg/dL (8.5-10.5); Carbon Dioxide 28 mmol/L (22-29); Chloride 98 mmol/L (98-107); Globulin 2.9 g/dL (1.3-4.6); Glucose 120 mg/dL (65-115); Osmolality Calculated 289 mOsm/kg (285-295); Potassium 4.3 mmol/L (3.5-5.1); Sodium 137 mmol/L (136-145); Total Protein 6.7 g/dL (6.6-8.7)
[2025-06-22 11:43] LABS: Troponin(5th) Baseline 36 ng/L (0-10)
[2025-06-22 11:52] LABS: Glucose Urine UA Negative (Normal); Nitrate Urine Negative (Negative); Specific Gravity, Urine 1.017 (1.005-1.030)
[2025-06-22 11:54] LABS: Add Urine Microscopic? YES
--- NOTE | 2025-06-22 12:01 | XR_ITS ---
WS: [email or web address] Exam: XR shoulder LT min 2V* [id number] Date/Time of Exam: 06/22/2025 12:01 PM Reason For Exam: fall DLP: There is a comminuted fracture of the distal LEFT clavicle with superior displacement of the proximal fragment and [id number] apposition. No other fractures. The joints are relatively well-maintained. Osteopenia. Multiple old LEFT rib fractures. Normal soft tissues. XR/XR shoulder LT min 2V* [id number] IMPRESSION: 1. Displaced distal clavicle fracture.
--- NOTE | 2025-06-22 12:02 | XR_ITS ---
WS: [email or web address] Exam: XR knee LT 3V* [id number] Date/Time of Exam: 06/22/2025 12:02 PM Reason For Exam: fall No acute fracture. The joint compartments are relatively well-maintained. Osteopenia. Normal soft tissues. No joint effusion. XR/XR knee LT 3V* [id number] IMPRESSION: 1. No fracture identified.
--- NOTE | 2025-06-22 12:02 | XR_ITS ---
WS: [email or web address] Exam: XR knee RT 3V* [id number] Date/Time of Exam: 06/22/2025 12:02 PM Reason For Exam: fall Comparison 08/01/2021. No fracture noted. Mild degenerative change. Normal soft tissues. An intramedullary haroon with anchoring screw visualized in the lower femur. XR/XR knee RT 3V* [id number] IMPRESSION: 1. No acute fracture.
--- NOTE | 2025-06-22 12:13 | XR_ITS ---
WS: [email or web address] Exam: [place] [id number] Date/Time of Exam: 06/22/2025 12:13 PM Reason For Exam: trauma DLP: There is a displaced fracture of the distal clavicle. There is superior displacement of the proximal fragment. The remainder of the clavicle is intact. The glenohumeral joint is intact. The AC joint appears to be intact. Unremarkable soft tissues. XR/[place] [id number] IMPRESSION: 1. Displaced distal LEFT clavicle fracture.
--- NOTE | 2025-06-22 12:31 | W.ED.EXTPRO ---
HPI - Extremity Problem General: Chief complaint: Extremity Injury, Upper Stated complaint: fall - left arm pain Time Seen by Provider: 06/22/25 10:47 History of Present Illness: 85-year-old female presents emergency room she was getting out of bed and fell she has shoulder pain. She is unsure if she hit her head there was loss of consciousness. She is not on any anticoagulants. Her main complaint at this time is shoulder pain she denies having any chest pain prior to arrival. Normally she is up ambulatory without any aids. No recent new or changed medications. Patient does have a history of hypertension and is on lisinopril metoprolol without change in dose recently. Patient has a history of severe global left ventricular hypokinesis. Last ejection fraction done August 2022 on echocardiogram was 25% Associated symptoms: Deny chest pain, fever(s) or rash Related Data Home Medications ?Medication ?Instructions ?Recorded ?Confirmed biotin 1 mg tablet 1 mg PO QAM 09/19/19 06/22/25 vit C 250 mg-vit E 90 mg-zinc 40 1 tab PO BID 09/19/19 06/22/25 mg-copper 1 gx-angcvl-elqocy capsule (PreserVision AREDS-2) aspirin 81 mg tablet,delayed 81 mg PO QAM 07/26/21 06/22/25 release multivitamin 1 tab PO QAM 07/26/21 06/22/25 oxybutynin chloride 5 mg tablet 5 mg PO BEDTIME PRN OVERACTIVE 07/26/21 06/22/25 BLADDER furosemide 20 mg tablet 20 mg PO DAILY 10/10/21 06/22/25 metoprolol succinate 25 mg capsule 25 mg PO DAILY 10/10/21 06/22/25 sprinkle, ext. release 24 hr pantoprazole 40 mg tablet,delayed 40 mg PO QAM 06/22/25 06/22/25 release potassium chloride 40 mEq/15 mL 7.5 meq PO DAILY 06/22/25 06/22/25 oral liquid Allergies Allergy/AdvReac Type Severity Reaction Status Date / Time No Known Allergies Allergy Verified 10/10/21 13:00 Review of Systems Const: Denies: fever(s) or chills Card: Denies: chest pain Resp: Denies: dyspnea GI: Denies: abdominal pain : Denies: dysuria, urinary frequency or urinary urgency Musc: Denies: neck pain or back pain Skin/Breast: Denies: rash PFSH ED PFSH: Medical History Hyponatremia Alcohol abuse Hyperlipidemia Surgical History History of hemiarthroplasty of right shoulder Tubal ligation status History of appendectomy Family History Other CAD (coronary artery disease) Hypertension Social History Smoking and tobacco/nicotine status: former use of tobacco/nicotine Alcohol intake: current Alcohol intake frequency: 0-2 Drinks per Day Substance/Drug Use: never Household members: spouse Housing: House Physical Exam Const: GENERAL APPEARANCE: cooperative ORIENTATION/CONSCIOUSNESS: Yes awake HENMT: COMMON NORMALS: normocephalic, atraumatic and hearing grossly normal bilaterally HEAD & SCALP: normocephalic and atraumatic Resp: COMMON NORMALS: normal respiratory effort, No retractions, No use of accessory muscles and clear to auscultation bilaterally AUSCULTATION: clear to auscultation bilaterally Cardio: COMMON NORMALS: regular rate, regular rhythm and No murmurs present (Cardio) RATE: regular rate RHYTHM: regular rhythm GI: COMMON NORMALS: Soft to palpation and No hepatosplenomegaly present AUSCULTATION: Yes normoactive bowel sounds PALPATION: Yes Soft to palpation, No Tenderness to palpation present (GI), No Guarding due to palpation present (GI) and Yes No hepatosplenomegaly present Extremity: COMMON NORMALS: normal to inspection, capillary refill normal, no clubbing, cyanosis or edema, no calf tenderness and no pedal edema OTHER: Pain and deformity at the left clavicle. No pain with manipulation of the elbow or the wrist. Bilateral knee abrasions Skin: COMMON NORMALS: no rashes or lesions noted GENERAL SKIN EXAM: no rashes or lesions noted Course Vital Signs: Vital signs: Vital Signs Temperature 97.7 F 06/22/25 15:33 Pulse Rate 86 06/22/25 15:40 Respiratory Rate 17 06/22/25 15:33 Blood Pressure 119/71 06/22/25 15:33 Pulse Oximetry 98 06/22/25 15:40 Oxygen Delivery Me thod Nasal Cannula 06/22/25 15:40 Oxygen Flow Rate 2 06/22/25 15:40 MDM - Extremity (Nontraumatic) Medical Decision Making Medical decision making Social determinants: Patient lives at home with assistance of family members I reviewed the patient's medical record. I reviewed the patient's current home meds. Alternate historians: Daughter Differential diagnosis: Syncope CVA cardio myopathy Lab Review: \ labs reviewed mild elevation white count 11.9 clinically there is no sign of infection. UA shows some contamination with a few white blood cells 1+ leukocyte esterase negative nitrates. Hold off on treatment until culture back Imaging: Chest x-ray shows comminuted distal clavicle fracture, also has increased vascular markings and mild cardiomegaly., shoulder x-ray shows clavicle fracture as well. Bilateral knee x-rays negative CT head unremarkable. CT cervical spine is pending Assessment of risk Level of risk: Low Hospitalization considerations: Admit for syncope. Reexamination: Unchanged. Sling has improved pain. Assessment and plan: Will admit for syncope. Patient has significant cardiomyopathy several years ago echocardiogram did not show any significant valvular disease which showed markedly depressed ejection fraction. Can follow-up with orthopedics as outpatient for clavicle fracture. Discussed with hospitalist orders written Medical Records Echocardiogram August 2022 CONCLUSIONS 1/ Dilated left ventricular cavity size. Increased left ventricular wall thickness. Severely decreased left ventricular systolic function. Left ventricular ejection fraction is estimated at 25 %. Severe global left ventricular hypokinesis. Grade I diastolic dysfunction (abnormal relaxation filling pattern), normal to mildly elevated filling pressures. 2. Mild to moderate pulmonary valve regurgitation. 3. When compared to study dated 09/24/2021, there may not have been any significant change. Jacki Mari MD (Electronically Signed) Final Date: 10 September 2022 Lab Data 06/22/25 11:06 06/22/25 11:[address] 06/22/25 10:59 IMPRESSION: 1. No evidence of intracranial hemorrhage or mass effect. 2. No acute intracranial findings. Shoulder X-Ray 06/22/25 12:01 IMPRESSION: 1. Displaced distal clavicle fracture. Knee X-Ray 06/22/25 12:02 IMPRESSION: 1. No acute fracture. Clavicle X-Ray 06/22/25 12:13 IMPRESSION: 1. Displaced distal LEFT clavicle fracture. Cervical Spine CT 06/22/25 13:06 IMPRESSION: No evidence of acute fracture or dislocation. Moderate spondylitic changes Chest X-Ray 06/22/25 13:10 IMPRESSION: 1. No acute cardiopulmonary finding. Laboratory Results WBC 11.94 10^3/uL (3.29-11.43) H 06/22/25 11:06 RBC 3.87 10^6/uL (3.85-5.65) 06/22/25 11:06 Hgb 12.10 g/dL (11.27-16.99) 06/22/25 11:06 Hct 37.1 % (36-47) 06/22/25 11:06 MCV 95.9 fl (85-98) 06/22/25 11:06 MCH 31.3 pg (27-33) 06/22/25 11:06 MCHC 32.6 g/dL (30-55) 06/22/25 11:06 RDW 13.4 % (12.1-15.1) 06/22/25 11:06 Plt Count 274 10^3/cmm (157-399) 06/22/25 11:06 MPV 11.4 fL (7.4-10.4) H 06/22/25 11:06 Neut % (Auto) 76.0 % 06/22/25 11:06 Lymph % (Auto) 10.0 % 06/22/25 11:06 [place] % (Auto) 11.8 % 06/22/25 11:06 Eos % (Auto) 1.0 % 06/22/25 11:06 Baso % (Auto) 0.3 % 06/22/25 11:06 Neut # (Auto) 9.08 10^3/uL (1.8-7.7) H 06/22/25 11:06 Lymph # (Auto) 1.2 10^3/uL (0.8-4.8) 06/22/25 11:06 [place] # (Auto) 1.4 10^3/uL (0.2-0.9) H 06/22/25 11:06 Eos # (Auto) 0.1 10^3/uL (0.0-0.8) 06/22/25 11:06 Baso # (Auto) 0.0 10^3/uL (0.0-0.1) 06/22/25 11:06 Nucleated RBC % (auto) 0 % 06/22/25 11:06 Nucleated RBCs # 0.0 /100WBC 06/22/25 11:06 Sodium 137 mmol/L (136-145) 06/22/25 11:06 Potassium 4.3 mmol/L (3.5-5.1) 06/22/25 11:06 Chloride 98 mmol/L (98-107) 06/22/25 11:06 Carbon Dioxide 28 mmol/L (22-29) 06/22/25 11:06 Anion Gap 15.3 (5-19) 06/22/25 11:06 BUN 23 mg/dL (8-23) 06/22/25 11:06 Creatinine 0.7 mg/dL (0.5-0.9) 06/22/25 11:06 GFR Calculation Not Reportable 06/22/25 11:06 Glucose 120 mg/dL (65-115) H 06/22/25 11:06 Calculated Osmolality 289 mOsm/kg (285-295) 06/22/25 11:06 Calcium 8.8 mg/dL (8.5-10.5) 06/22/25 11:06 Total Bilirubin 0.3 mg/dL (0.15-1.2) 06/22/25 11:06 AST 24 U/L (0-32) 06/22/25 11:06 ALT 11 U/L (0-33) 06/22/25 11:06 Alkaline Phosphatase 86 U/L (35-105) 06/22/25 11:06 Troponin T Baseline 36 ng/L (0-10) H 06/22/25 11:06 Troponin T 120 Minute 32.69 ng/L (0-10) H 06/22/25 13:13 Delta Troponin T -3.31 ABS# (0-10) L 06/22/25 13:13 Total Protein 6.7 g/dL (6.6-8.7) 06/22/25 11:06 Albumin 3.8 g/dL (3.5-5.2) 06/22/25 11:06 Globulin 2.9 g/dL (1.3-4.6) 06/22/25 11:06 Urine Color Yellow (Yellow) 06/22/25 11:33 Urine Appearance Clear (CLEAR) 06/22/25 11:33 Urine pH 6.5 (5-7) 06/22/25 11:33 Ur Specific [place] 1.017 (1.005-1.030) 06/22/25 11:33 Urine Protein Negative (Negative) 06/22/25 11:33 Urine Glucose (UA) Negative (Normal) 06/22/25 11:33 Urine Ketones Negative (Negative) 06/22/25 11:33 Urine Blood Negative (Negative) 06/22/25 11:33 Urine Nitrate Negative (Negative) 06/22/25 11:33 Urine Bilirubin Negative (Negative) 06/22/25 11:33 Urine Urobilinogen 1.0 mg/dL (Negative) 06/22/25 11:33 Ur Leukocyte Esterase 1+ (Negative) A 06/22/25 11:33 Urine RBC 0-2 /hpf (0-2) 06/22/25 11:33 Urine WBC 6-10 /hpf (0-5) 06/22/25 11:33 Ur Squamous Epith Cells 0-5 /hpf (0-5) 06/22/25 11:33 Amorphous Sediment Not Reportable 06/22/25 11:33 Urine Bacteria 4+ /hpf (NONE) H 06/22/25 11:33 Hyaline Casts 1.21 /lpf 06/22/25 11:33 All radiology interpretation(s) finalized by discharge EKG Data EKG 1: I personally reviewed and interpreted this EKG as follows: Discharge Plan Discharge Patient Disposition: Placed in Observation Admit Provider: Florin Ferro Clinical Impression: Syncope and collapse, Fracture closed, clavicle, shaft, Cardiomyopathy Coding Level of Care Code ED Dock Grader for Chg [place]
[2025-06-22] MEDS: HYDROcodone-acetaminophen 5-325 mg Tablet 1 TAB PO (12:51)
--- NOTE | 2025-06-22 12:52 | PC.PHAR ---
Pt stopped taking Pravastatin 20mg last fill 04/07/25 90ds, due to having to crush all tablets. Provider agreed to remove as many pills as possible due to inability to swallow well.
--- NOTE | 2025-06-22 13:06 | CT_ITS ---
WS: [email or web address] CT CERVICAL TRAUMA TECHNIQUE: Noncontrast CT of the cervical spine with coronal and sagittal reformatted images. CLINICAL INFORMATION: trauma COMPARISON: 2021 DLP: 171.[address] scans at [facility] use at least one of these dose optimization techniques: automated exposure control; mA and/or kV adjustment per patient size (includes targeted exams where dose is matched to clinical indication); or iterative reconstruction. FINDINGS: Cervical curve with exaggeration of the normal cervical lordosis. Moderate spondylitic changes. Normal craniocervical junction. Normal C1-C2 articulation. Dens is normal in appearance. Normal occipital condyles. No high-grade spinal canal narrowing. Normal C1 ring. No evidence of acute fracture or dislocation. Mild compression superior endplate T2 with sclerosis is new since 2021 but has a chronic appearance. Disc space narrowing worse at C5-C6 and C6-C7 with disc osteophyte complexes. Normal prevertebral soft tissues. Mastoids air cells are well aerated. CT/CT cervical spin wo con* [id number] IMPRESSION: No evidence of acute fracture or dislocation. Moderate spondylitic changes
--- NOTE | 2025-06-22 13:10 | XR_ITS ---
WS: [email or web address] Exam: XR chest 1V portable [id number] Date/Time of Exam: 06/22/2025 1:10 PM Reason For Exam: dyspnea/cough Comparison 09/19/2019. Lungs are hyperinflated and clear. Chronic interstitial changes. Cardiomediastinal silhouette is unremarkable for technique. No pleural effusion. RIGHT humeral head prosthesis. Bony structures are otherwise intact. XR/XR chest 1V portable [id number] IMPRESSION: 1. No acute cardiopulmonary finding.
[2025-06-22 13:43] LABS: Troponin 5 2HR 32.69 ng/L (0-10)
[2025-06-22 13:45] LABS: Troponin 5 2HR Delta -3.31 ABS# (0-10)
--- NOTE | 2025-06-22 13:57 | PM.HP ---
Providers/Chief Complaint Admitting Physician: Florin Ferro MD Primary Care Provider: Ciera Shepherd Chief Complaint: fall - left arm pain History of Present Illness Beryl Gibbs is a 85 year old female with PMH of cardiomyopathy / HFrEF 25%, HLD (not on statin, taken off), urinary frequency, dysphagia and esophagus issues Patient presented to the ED on 06/22/25 after an unwitnessed fall at home this morning. Patent was discovered by her daughter. Patient herself does not recall the event, he most recent recollection afterward was being tended to by the ambulance. Reports experiencing left shoulder pain. Patient denies preceding dizziness, chest pain, SOA, diaphoresis, nausea or vomiting. ED course / work-up Labs 06/22/25 1106 Hemogram WBC 11.94 RBC 3.87 PLT 274 HGB 12.10 HCT 37.1 Chemistry Na 137 K 4.3 Cl 98 Ca 8.8 Glu 120 CO2 28 AG 15.3 Renal BUN 23 Cr 0.7 eGFR Liver AST 24 ALT 11 ALP 86 T.Bili 0.3 Alb 3.8 T.Protein 6.7 Cardiac Trop 36 Urinalysis SG 1.017 LE (+) WBC (6-10) bacteria (4+) CT Head: No evidence of intracranial hemorrhage or mass effect. No acute intracranial findings. CT Cervical Spine: No evidence of acute fracture or dislocation. Moderate spondylitic changes. Evaluate for XR Chest: No acute cardiopulmonary findings. XR Shoulder (left): A comminuted fracture of the distal LEFT clavicle with superior displacement of the proximal fragment and xxal-ya-xosw apposition. XR Clavicle (left): Displaced distal LEFT clavicle fracture. XR Knee (left): No acute fracture identified. XR Knee (right): No fracture noted. Review of Systems General: Reports: 10 or more systems reviewed and unremarkable except in HPI and below Medications/Allergies Home Medications ?Medication ?Instructions ?Recorded ?Confirmed ?Last Taken ?Type biotin 1 mg tablet 1 mg PO QAM 09/19/19 06/22/25 06/21/25 History vit C 250 mg-vit E 90 mg-zinc 40 1 tab PO BID 09/19/19 06/22/25 06/21/25 History mg-copper 1 [id number]-dssejr capsule (PreserVision AREDS-2) aspirin 81 mg tablet,delayed 81 mg PO QAM 07/26/21 06/22/25 06/21/25 History release multivitamin 1 tab PO QAM 07/26/21 06/22/25 06/21/25 History oxybutynin chloride 5 mg tablet 5 mg PO BEDTIME PRN OVERACTIVE 07/26/21 06/22/25 06/21/25 History BLADDER furosemide 20 mg tablet 20 mg PO DAILY 10/10/21 06/22/25 06/21/25 History metoprolol succinate 25 mg capsule 25 mg PO DAILY 10/10/21 06/22/25 06/21/25 History sprinkle, ext. release 24 hr pantoprazole 40 mg tablet,delayed 40 mg PO QAM 06/22/25 06/22/25 06/21/25 History release potassium chloride 40 mEq/15 mL 7.5 meq PO DAILY 06/22/25 06/22/25 06/21/25 History oral liquid Allergies Allergy/AdvReac Type Severity Reaction Status Date / Time No Known Allergies Allergy Verified 10/10/21 13:00 PFSH Acute PFSH: Medical History Hyponatremia Alcohol abuse Hyperlipidemia Surgical History History of hemiarthroplasty of right shoulder Tubal ligation status History of appendectomy Family History Other CAD (coronary artery disease) Hypertension Social History Smoking and tobacco/nicotine status: former use of tobacco/nicotine Alcohol intake: current Alcohol intake frequency: 0-2 Drinks per Day Substance/Drug Use: never Household members: spouse Housing: House Vitals/I&O/Wt Last Vital Signs Temp 98.0 F 06/22/25 10:46 Pulse 89 06/22/25 13:00 Resp 16 06/22/25 13:00 BP 111/60 06/22/25 13:00 Pulse Ox 95 06/22/25 13:00 O2 Del Method Nasal Cannula 06/22/25 13:00 O2 Flow Rate 2 06/22/25 13:00 Weight last 48 hrs Weight 52.163 kg Physical Exam Narrative: Constitutional: NAD Neurorogic: Awake and alert. Oriented x3. No facial asymmetry, unilateral weakness or speech deficits. Head NC/AT Eyes PERRLA. EOMI. Sclera anicteric. ENT Normal external ears. Hearing intact to normal voice. Normal external nose. No epistaxis. MMM. Respiratory CTAB. No accessory muscle use. On room air. Heart / CV Regular. No murmur. Extremities No edema bilaterally Abdomen / GI Soft. NT. ND. +BS Genitourinary No cunningham catheter Musculoskeletal limited movement of left shoulder Able to flex / extend at hip and knee bilat without pain. Straight leg rise negative Skin shoulder with bruising bilaterally Data 06/22/25 11:06 06/22/25 11:06 Other Labs: I have personally reviewed below listed labs that were done in ED on presentation. Labs 06/22/25 1106 Hemogram WBC 11.94 RBC 3.87 PLT 274 HGB 12.10 HCT 37.1 Chemistry Na 137 K 4.3 Cl 98 Ca 8.8 Glu 120 CO2 28 AG 15.3 Renal BUN 23 Cr 0.7 eGFR Liver AST 24 ALT 11 ALP 86 T.Bili 0.3 Alb 3.8 T.Protein 6.7 Cardiac Trop 36 Urinalysis SG 1.017 LE (+) WBC (6-10) bacteria (4+) A&P Assessment and plan 1. Syncope and collapse: 2. Cardiomyopathy: 3. Fracture, clavicle: 4. Dysphagia: 5. HFrEF (heart failure with reduced ejection fraction): Plan: # Syncope and collapse - check echo - check carotid u/s bilat - tele monitoring - Orthostatic BPs - Fall precautions # Comminuted fracture of the distal left clavicle - Immobilize: keep LUE in a sling ~ 2-4 weeks - Neurovascular exam Q4H - Ice - Avoid lifting with affected extremity and avoid overhead activity - pain control tylenol 500 mg Q4H prn lidocaine patch daily to left clavicular area fentanyl 25 mcg Q3H prn severe pain - Consider follow-up X-ray in 1-2 weeks to ensure no interval displacement - Will need outpatient follow up wiht # Cardiomyopathy / HFrEF Hx of HFrEF of 25% Not in an acute exacerbation on exam # Urinary frequency Urinary frequency (chronic per daughter) with suprapubic discomfort on exam UA: LE (+) WBC (6-10) bacteria (4+) No fever or systemic symptoms - monitor - obtain bladder scan family and patient request cunningham catheter to be placed at this time patient does not entirely meet criteria for cunningham catheter placement - no antibiotic at this time # Dysphasia and esophagus issues 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 For this reason all of her foods have to be pur?ed. - Dysphagia diet ordered # Physical deconditioning - consult PT # Caregiver role strain Patient's daughter serves as the primary caregiver and is responsible for the majority of the patient's daily care needs. Given patient's progressively deteriorating clinical status and increasing functional demands, the caregiving responsibilities now requires significant amount of time, physical effort and emotional energy. The daughter reports that these escalating needs have become increasingly difficult to manage, contributing to substantial caregiver role strain. She is experiencing both psychological and physiological burden and is struggling to consistently meet the patient's daily care tasks. These challenges were discussed in detail with the social work team. At this time, additional supportive services and possibility of long-term placement are being explored to ensure patient's safety and reduce caregiver burden. VTE PPx SCDs, lovenox PDMP PDMP Reviewed: Not Reviewed Attestations Medical Necessity Statement*: Patient admitted under observation status. Patient will require less than two midnights to conduct syncopal work-up, address acute pain needs, ensure stability of her subclavicular fracture without potential complications and explore placement. Coding Level of Care Code 75398 Diagnoses Syncope and collapse R55 Cardiomyopathy I42.9 Fracture, clavicle S42.009A Dysphagia R13.10 HFrEF (heart failure with reduced ejection fraction) I50.20
--- NOTE | 2025-06-22 14:56 | ECG_ITS ---
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 Measurements Intervals [place] Rate: 83 P: 70 RI: 208 QRS: -49 QRSD: 114 T: 64 QT: 395 QTc: 466 Interpretive Statements SINUS RHYTHM LEFT ANTERIOR FASCICULAR BLOCK [QRS AXIS <= -45, QR IN I, RS IN II] POSSIBLE ANTERIOR MYOCARDIAL INFARCTION , OF INDETERMINATE AGE [30 ms Q WAVE IN V3/V4, OR R < 0.2 mV IN V4] Compared to ECG 06/22/2025 11:23:27 Supraventricular rhythm no longer present Myocardial infarct finding still present Electronically Signed On 06-23-2025 18:52:31 [employer] by Diya Marquez M.D. [email or web address]
--- NOTE | 2025-06-22 15:20 | USCV_ITS ---
Beryl Gibbs Age: 85 Gender: F : 1940 Exam Date: 06/22/2025 16:22 Ordering Phys: Jerel Rivas NP Technologist: GEO Exam Location: [facility] [place] Indication: Cardiomyopathy BP: 119 / 71 HR: 80 Rhythm: Sinus Technical Quality: Adequate MEASUREMENTS (Male / Female) Normal Values 2D ECHO LV Diastolic Diameter PLAX 5.4 cm 4.2 - 5.9 / 3.9 - 5.3 cm IVS Diastolic Thickness 0.8 cm 0.6 - 1.0 / 0.6 - 0.9 cm IVS Systolic Thickness 0.6 cm LVPW Diastolic Thickness 0.8 cm 0.6 - 1.0 / 0.6 - 0.9 cm LVPW Systolic Thickness 0.9 cm LVOT Diameter 2.0 cm LV Ejection Fraction 2D Teich 7.5 % LV Ejection Fraction MOD 4C 47.7 % LV Ejection Fraction MOD 2C 41.4 % LV Ejection Fraction 2C AL 44.5 % LA Diameter 3.3 cm RA Systolic Volume 4C AL 44.0 ml RA Systolic Volume 4C MOD 41.3 ml LA Sys Volume AL 35.1 cm cubed LA Sys Volume Index AL 26.8 cm cubed/m squared Aorta at Sinotubular Diameter 2.1 cm M-MODE LA Ao Ratio MM 1.6 AV Cusp Separation MM 0.8 cm DOPPLER AV Peak Velocity 143.0 cm/s LVOT Peak Velocity 67.0 cm/s AV Area Cont Eq vti 1.1 cm squared AV Area Cont Eq pk 1.4 cm squared MV Peak Velocity 91.0 cm/s MV Area PHT 7.7 cm squared Mitral E to A Ratio 0.6 TR Peak Velocity 95.0 cm/s TR Peak Gradient 3.6 mmHg TV Peak E Velocity 47.0 cm/s PV Peak Velocity 91.0 cm/s FINDINGS Left Ventricle Diffuse hypokinesia of the left ventricle with an ejection fraction of around 44.5%.mildly increased left ventricular cavity size. Right Ventricle Normal right ventricular size and systolic function. Right Atrium Mildly increased right atrial size. Left Atrium Mildly increased left atrial size. IA Septum Normal appearance of the interatrial septum. Mitral Valve No gross abnormalities noted Aortic Valve Thickened aortic valve. Tricuspid Valve No gross abnormalities noted Pulmonic Valve Pulmonic valve not well visualized. Pericardium No pericardial effusion. Aorta Normal aortic annulus size. IVC Normal IVC diameter. CONCLUSIONS Diffuse hypokinesia of the left ventricle with an ejection fraction of around 44.5%.mildly increased left ventricular cavity size. Mild biatrial enlargement. Thickened aortic valve. There is no pericardial effusion. There are no intracardiac masses. Compared to the study from 09/02/2022, there is significant improvement in the LV ejection fraction from 25% to 44.5% Dr Diya Marquez MD [facility] (Electronically Signed) Final Date: 23 June 2025 00:33 S
--- NOTE | 2025-06-22 15:23 | USCV_ITS ---
Beryl Gibbs Age: 85 Gender: F : 1940 Exam Date: 06/22/2025 16:28 Ordering Phys: Jerel Rivas NP Technologist: ALIZA Exam Location: [facility] [place] Indication: syncope Risk Factors: Previous Vascular Surgery: Right Brachial BP: / Left Brachial BP: / Right Left Velocity (cm/s) Spectral Plaque Velocity (cm/s) Spectral Plaque Syst/Diast Broadening Syst/Diast Broadening 186.60/27.90 Prox CCA 157.30/ 15.40 98.50/ 19.50 Mid CCA 117.50/ 24.80 82.00/ 12.60 Distal CCA 115.10/ 22.40 5.80 / 35.90 Prox ICA 70.90 / 15.10 75.70/ 14.40 Mid ICA 122.10/ 31.70 58.30/ 16.60 Distal ICA 104.40/ 31.70 87.90 ECA 68.10 0.90 ICA/CCA 1.10 Antegrade Vertebral Antegrade 43.00/ 10.90 cm/s 79.10/ 22.90 cm/s Bi Subclavian Bi 138.9 127.0 0 0 CONCLUSIONS Right ICA stenosis suspected high grade with decreased velocities proximal ICA. Recommend CTA. Moderate calcified atheromatous plaque right carotid bulb/ICA. Left ICA stenosis <50%. Moderate atheromatous plaque left carotid bulb/ICA. Normal antegrade Doppler flow noted in the right vertebral artery. Normal antegrade Doppler flow noted in the left vertebral artery. John Vital MD (Electronically Signed) Final Date: 22 June 2025 17:37 S
[2025-06-22 18:03] LABS: Troponin 5 6HR 39.45 ng/L (0-10); Troponin 5 6HR Delta 3.45 ng/L (0-12)
[2025-06-23] VITALS (8 sets, daily range): BP systolic 108–141; BP diastolic 40–83; PULSE 78–97; RESP 16–17; TEMP 36.7–37.6; O2SAT 90–96
--- NOTE | 2025-06-23 18:25 | CTR_ITS ---
PROCEDURE INFORMATION: Exam: CTA Neck With Contrast Exam date and time: 06/23/2025 11:16 PM Age: 85 years old Clinical indication: Abnormal findings; Abnormal carotid US; Prior surgery; Surgery date: <1 month; Surgery type: Right total shoulder; Internal carotid stenosis noted on ultrasound; Additional info: Evaluate carotid stenosis TECHNIQUE: Imaging protocol: Computed tomographic angiography of the neck with contrast. Exam focused on the cervical segments of the vasculature. 3D rendering (Not supervised by radiologist): MIP and/or 3D reconstructed images were created by the technologist. Radiation optimization: All CT scans at this facility use at least one of these dose optimization techniques: automated exposure control; mA and/or kV adjustment per patient size (includes targeted exams where dose is matched to clinical indication); or iterative reconstruction. Contrast material: [id number]; Contrast volume: 100 ml; Contrast route: INTRAVENOUS (IV); COMPARISON: 1. CT cervical spin wo con* 06/22/2025 1:[address] thoracic spin wo con* 08/01/2021 6:11 PM RADIATION DOSE METRICS: Total DLP (mGy-cm): 220.01 FINDINGS: Right common carotid artery: No stenosis. No dissection or occlusion. Right internal carotid artery: No stenosis of the extracranial segment. No dissection or occlusion. Right external carotid artery: No occlusion or stenosis of the origin. Left common carotid artery: No stenosis. No dissection or occlusion. Left internal carotid artery: No stenosis of the extracranial segment. No dissection or occlusion. Left external carotid artery: No occlusion or stenosis of the origin. Right vertebral artery: No stenosis. No dissection or occlusion. Left vertebral artery: No stenosis. No dissection or occlusion. Thyroid: Subcentimeter thyroid nodules; no routine follow-up recommended. Soft tissues: Normal. No significant soft tissue swelling. Bones/joints: Bones are diffusely demineralized. No acute cervical fracture. Age indeterminate mild compression fracture of T2, unchanged from 06/22/2025, though new in comparison to 2021. Age indeterminate cmqyqmts-cz-kjnmwi compression fracture of T5, new in comparison to 2021. Stable old mild compression fracture of T4 and stable old severe compression fracture of T6 with bone cement from prior kyphoplasty. Lungs: Chronic emphysematous changes in the visualized lung apices. CT/CT angio neck [id number] IMPRESSION: 1. No significant stenosis, dissection, or occlusion. 2. Age indeterminate mild compression fracture of T2, unchanged from 06/22/2025, though new in comparison to 2021. 3. Age indeterminate blfllpqq-yx-eziygi compression fracture of T5, new in comparison to 2021. 4. Stable old mild compression fracture of T4 and stable old severe compression fracture of T6 with bone cement from prior kyphoplasty. COMMENTS: Consistent with the [place] [employer] [place] [employer]'s Incidental Findings Committee white paper (J Am Michaela Radiol 2015): In patients aged 35 years and older with an incidental thyroid nodule equal to or greater than 1.[address], MRI or extrathyroidal US, further evaluation with dedicated thyroid US is recommended for patients with normal life expectancy and without comorbidities. For smaller nodules without suspicious features, no further evaluation or follow up is recommended. REFERENCES: NASCET CRITERIA. The degree of stenosis in the cervical segment of the internal carotid artery is based on NASCET criteria. Normal is no stenosis. Mild is less than 50% stenosis. Moderate is 50-69% stenosis. Severe is 70% to 99% stenosis. Total occlusion is no detectable patent lumen.
--- NOTE | 2025-06-23 18:32 | P.PN_ITS ---
Subjective 2 Subjective: 85 year old female with PMH of cardiomyo owen / HFrEF 25%, HLD (not on statin, taken off), urinary frequency, dysphagia and esophagus issues Presents with unwitnessed fall Vitals/I&O/Wt Last Vital Signs Temp 99.0 F 06/23/25 15:36 Pulse 84 06/23/25 15:36 Resp 17 06/23/25 15:36 BP 113/65 06/23/25 15:36 Pulse Ox 90 06/23/25 15:36 O2 Del Method Nasal Cannula 06/23/25 07:42 O2 Flow Rate 2 06/22/25 22:00 06/23/25 06/23/25 06/23/25 06:59 14:59 22:59 Intake Total 440 / 1000 480 / 480 240 / 720 Output Total 250 / 450 600 / 600 Balance 190 / 550 -120 / -120 240 / 120 Weight last 48 hrs Weight 38.873 kg Weight 39.372 kg Weight 52.163 kg Physical Exam 2 Narrative: Constitutional: NAD Neurorogic: Awake and alert. Oriented x3. No facial asymmetry, unilateral weakness or speech deficits. Head NC/AT Eyes PERRLA. EOMI. Sclera anicteric. ENT Normal external ears. Hearing intact to normal voice. Normal external nose. No epistaxis. MMM. Respiratory CTAB. No accessory muscle use. On room air. Heart / CV Regular. No murmur. Extremities No edema bilaterally Abdomen / GI Soft. NT. ND. +BS Genitourinary No cunningham catheter Musculoskeletal limited movement of left shoulder Able to flex / extend at hip and knee bilat without pain. Straight leg rise negative Skin shoulder with bruising bilaterally Data 06/22/25 11:06 06/22/25 11:06 Micro: Microbiology 06/22/25 11:33 Urine Culture - Preliminary Urine,Clean Catch Gram Negative Rods A&P Assessment and plan 1. Cardiomyopathy: 2. HFrEF (heart failure with reduced ejection fraction): 3. Hyperlipidemia: Plan: 1. Syncope and collapse: 2. Cardiomyopathy: 3. Fracture, clavicle: 4. Dysphagia: 5. HFrEF (heart failure with reduced ejection fraction): Plan: # Syncope and collapse --unclear etiology --++ orthostatics --IVF --Check CTA neck # Comminuted fracture of the distal left clavicle - Immobilize: keep LUE in a sling ~ 2-4 weeks - Neurovascular exam Q4H - Ice - Avoid lifting with affected extremity and avoid overhead activity - pain control tylenol 500 mg Q4H prn - Consider follow-up X-ray in 1-2 weeks to ensure no interval displacement - Will need outpatient follow up wiht # Cardiomyopathy / HFrEF Hx of HFrEF of 25% Not in an acute exacerbation on exam # Urinary frequency Urinary frequency (chronic per daughter) with suprapubic discomfort on exam UA: LE (+) WBC (6-10) bacteria (4+) No fever or systemic symptoms # Dysphasia and esophagus issues 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 For this reason all of her foods have to be pur?ed. - Dysphagia diet ordered # Physical deconditioning - consult PT # Caregiver role strain Patient's daughter serves as the primary caregiver and is responsible for the majority of the patient's daily care needs. Given patient's progressively deteriorating clinical status and increasing functional demands, the caregiving responsibilities now requires significant amount of time, physical effort and emotional energy. The daughter reports that these escalating needs have become increasingly difficult to manage, contributing to substantial caregiver role strain. She is experiencing both psychological and physiological burden and is struggling to consistently meet the patient's daily care tasks. These challenges were discussed in detail with the social work team. At this time, additional supportive services and possibility of long-term placement are being explored to ensure patient's safety and reduce caregiver burden. VTE PPx SCDs, lovenox PDMP PDMP Reviewed: Not Reviewed Attestations 2 Medical Necessity Statement*: PT OT needs a CT Coding Level of Care Code 46915 Diagnoses Cardiomyopathy I42.9 HFrEF (heart failure with reduced ejection fraction) I50.20 Hyperlipidemia E78.5
[2025-06-23] MEDS: iohexol 350 mg/mL 500 mL Btl (per mL) IV (23:14)
[2025-06-24] VITALS: BP 118/64; PULSE 81; RESP 17; TEMP 36.8; O2SAT 93
[2025-06-24 04:00] VITALS: BP 120/55; PULSE 61; RESP 17; TEMP 36.9; O2SAT 95
[2025-06-24 08:00] VITALS: BP 133/69; PULSE 84; RESP 14; TEMP 36.6; O2SAT 94
[2025-06-24 10:42] VITALS: BP 111/64; BP 142/63; BP 143/59
[2025-06-24 11:41] VITALS: BP 142/63; PULSE 84; RESP 16; TEMP 36.4; O2SAT 95
--- NOTE | 2025-06-24 13:44 | PM.DCS ---
Discharge Providers Date of Admission: 06/22/25 13:48 Date of Discharge: June 24, 2025 Attending Provider at Admission: Florin Ferro MD Attending Provider at Discharge: Florin Ferro MD Primary Care Provider: Ciera Shepherd Diagnoses at Discharge Discharge Diagnosis 1. Cardiomyopathy: 2. HFrEF (heart failure with reduced ejection fraction): 3. Hyperlipidemia: Reason for Visit Reason for Visit: fall - left arm pain Hospital Course Hospital Course Beryl Gibbs is a 85 year old female with PMH of cardiomyopathy / HFrEF 25%, HLD (not on statin, taken off), urinary frequency, dysphagia and esophagus issues Patient presented to the ED on 06/22/25 after an unwitnessed fall at home this morning. Patent was discovered by her daughter. Patient herself does not recall the event, he most recent recollection afterward was being tended to by the ambulance. Reports experiencing left shoulder pain. Patient denies preceding dizziness, chest pain, SOA, diaphoresis, nausea or vomiting. Hospital course: Echo carotid ultrasound, CTA neck done. Outpatient follow-up with orthopedics. Left upper extremity was placed in a sling. Pain medication given. Chronic cardiac meds were continued. Orthostatics were checked. She was discharge to facility. She did report that she wanted to go home at some point Physical Exam Narrative: Constitutional: NAD Neurorogic: Awake and alert. Oriented x3. No facial asymmetry, unilateral weakness or speech deficits. Head NC/AT Eyes PERRLA. EOMI. Sclera anicteric. ENT Normal external ears. Hearing intact to normal voice. Normal external nose. No epistaxis. MMM. Respiratory CTAB. No accessory muscle use. On room air. Heart / CV Regular. No murmur. Extremities No edema bilaterally Abdomen / GI Soft. NT. ND. +BS Genitourinary No cunningham catheter Musculoskeletal limited movement of left shoulder Able to flex / extend at hip and knee bilat without pain. Straight leg rise negative Skin shoulder with bruising bilaterally Discharge Data Studies Completed and Pending Completed Studies During Hospitalization Category Date Time Status CT cervical spin wo con* [id number] Stat Cat Scan 06/22/25 13:[address] head wo con* [id number] Stat Cat Scan 06/22/25 10:59 Completed CTA neck [CT angio neck 06142] Routine Cat Scan 06/23/25 18:25 Completed XR chest 1V portable [id number] Stat Exams 06/22/25 13:10 [place] [id number] Stat Exams 06/22/25 12:13 Completed XR knee LT 3V* [id number] Stat Exams 06/22/25 12:02 Completed XR knee RT 3V* [id number] Stat Exams 06/22/25 12:02 Completed XR shoulder LT min 2V* [id number] Stat Exams 06/22/25 12:01 Completed CV. echo complete* [id number] Routine Ultrasound 06/22/25 15:20 Completed US carotid duplex bilateral [CV carotid duplex BI* Ultrasound 06/22/25 15:23 Completed [id number]] Routine Radiology Impressions Head CT 06/22/25 10:59 IMPRESSION: 1. No evidence of intracranial hemorrhage or mass effect. 2. No acute intracranial findings. Shoulder X-Ray 06/22/25 12:01 IMPRESSION: 1. Displaced distal clavicle fracture. Knee X-Ray 06/22/25 12:02 IMPRESSION: 1. No acute fracture. Clavicle X-Ray 06/22/25 12:13 IMPRESSION: 1. Displaced distal LEFT clavicle fracture. Cervical Spine CT 06/22/25 13:06 IMPRESSION: No evidence of acute fracture or dislocation. Moderate spondylitic changes Chest X-Ray 06/22/25 13:10 IMPRESSION: 1. No acute cardiopulmonary finding. Neck CTA 06/23/25 18:25 IMPRESSION: 1. No significant stenosis, dissection, or occlusion. 2. Age indeterminate mild compression fracture of T2, unchanged from 06/22/2025, though new in comparison to 2021. 3. Age indeterminate [id number] compression fracture of T5, new in comparison to 2021. 4. Stable old mild compression fracture of T4 and stable old severe compression fracture of T6 with bone cement from prior kyphoplasty. COMMENTS: Consistent with the [employer] [place]'s Incidental Findings Committee white paper (J Am Michaela Radiol 2015): In patients aged 35 years and older with an incidental thyroid nodule equal to or greater than 1.[address], MRI or extrathyroidal US, further evaluation with dedicated thyroid US is recommended for patients with normal life expectancy and without comorbidities. For smaller nodules without suspicious features, no further evaluation or follow up is recommended. REFERENCES: NASCET CRITERIA. The degree of stenosis in the cervical segment of the internal carotid artery is based on NASCET criteria. Normal is no stenosis. Mild is less than 50% stenosis. Moderate is 50-69% stenosis. Severe is 70% to 99% stenosis. Total occlusion is no detectable patent lumen. Laboratory Results WBC 11.94 10^3/uL (3.29-11.43) H 06/22/25 11:06 RBC 3.87 10^6/uL (3.85-5.65) 06/22/25 11:06 Hgb 12.10 g/dL (11.27-16.99) 06/22/25 11:06 Hct 37.1 % (36-47) 06/22/25 11:06 MCV 95.9 fl (85-98) 06/22/25 11:06 MCH 31.3 pg (27-33) 06/22/25 11:06 MCHC 32.6 g/dL (30-55) 06/22/25 11:06 RDW 13.4 % (12.1-15.1) 06/22/25 11:06 Plt Count 274 10^3/cmm (157-399) 06/22/25 11:06 MPV 11.4 fL (7.4-10.4) H 06/22/25 11:06 Neut % (Auto) 76.0 % 06/22/25 11:06 Lymph % (Auto) 10.0 % 06/22/25 11:06 [place] % (Auto) 11.8 % 06/22/25 11:06 Eos % (Auto) 1.0 % 06/22/25 11:06 Baso % (Auto) 0.3 % 06/22/25 11:06 Neut # (Auto) 9.08 10^3/uL (1.8-7.7) H 06/22/25 11:06 Lymph # (Auto) 1.2 10^3/uL (0.8-4.8) 06/22/25 11:06 [place] # (Auto) 1.4 10^3/uL (0.2-0.9) H 06/22/25 11:06 Eos # (Auto) 0.1 10^3/uL (0.0-0.8) 06/22/25 11:06 Baso # (Auto) 0.0 10^3/uL (0.0-0.1) 06/22/25 11:06 Nucleated RBC % (auto) 0 % 06/22/25 11:06 Nucleated RBCs # 0.0 /100WBC 06/22/25 11:06 Sodium 137 mmol/L (136-145) 06/22/25 11:06 Potassium 4.3 mmol/L (3.5-5.1) 06/22/25 11:06 Chloride 98 mmol/L (98-107) 06/22/25 11:06 Carbon Dioxide 28 mmol/L (22-29) 06/22/25 11:06 Anion Gap 15.3 (5-19) 06/22/25 11:06 BUN 23 mg/dL (8-23) 06/22/25 11:06 Creatinine 0.7 mg/dL (0.5-0.9) 06/22/25 11:06 GFR Calculation Not Reportable 06/22/25 11:06 Glucose 120 mg/dL (65-115) H 06/22/25 11:06 Calculated Osmolality 289 mOsm/kg (285-295) 06/22/25 11:06 Calcium 8.8 mg/dL (8.5-10.5) 06/22/25 11:06 Total Bilirubin 0.3 mg/dL (0.15-1.2) 06/22/25 11:06 AST 24 U/L (0-32) 06/22/25 11:06 ALT 11 U/L (0-33) 06/22/25 11:06 Alkaline Phosphatase 86 U/L (35-105) 06/22/25 11:06 Troponin T Baseline 36 ng/L (0-10) H 06/22/25 11:06 Troponin T 120 Minute 32.69 ng/L (0-10) H 06/22/25 13:13 Delta Troponin T -3.31 ABS# (0-10) L 06/22/25 13:13 Troponin T Hi Sens 6Hr 39.45 ng/L (0-10) H 06/22/25 17:24 Troponin T Hi Sens 6Hr Delta 3.45 ng/L (0-12) 06/22/25 17:24 Total Protein 6.7 g/dL (6.6-8.7) 06/22/25 11:06 Albumin 3.8 g/dL (3.5-5.2) 06/22/25 11:06 Globulin 2.9 g/dL (1.3-4.6) 06/22/25 11:06 Urine Color Yellow (Yellow) 06/22/25 11:33 Urine Appearance Clear (CLEAR) 06/22/25 11:33 Urine pH 6.5 (5-7) 06/22/25 11:33 Ur Specific [place] 1.017 (1.005-1.030) 06/22/25 11:33 Urine Protein Negative (Negative) 06/22/25 11:33 Urine Glucose (UA) Negative (Normal) 06/22/25 11:33 Urine Ketones Negative (Negative) 06/22/25 11:33 Urine Blood Negative (Negative) 06/22/25 11:33 Urine Nitrate Negative (Negative) 06/22/25 11:33 Urine Bilirubin Negative (Negative) 06/22/25 11:33 Urine Urobilinogen 1.0 mg/dL (Negative) 06/22/25 11:33 Ur Leukocyte Esterase 1+ (Negative) A 06/22/25 11:33 Urine RBC 0-2 /hpf (0-2) 06/22/25 11:33 Urine WBC 6-10 /hpf (0-5) 06/22/25 11:33 Ur Squamous Epith Cells 0-5 /hpf (0-5) 06/22/25 11:33 Amorphous Sediment Not Reportable 06/22/25 11:33 Urine Bacteria 4+ /hpf (NONE) H 06/22/25 11:33 Hyaline Casts 1.21 /lpf 06/22/25 11:33 Vitals Last Vital Signs Temp 97.5 F L 06/24/25 11:41 Pulse 84 06/24/25 11:41 Resp 16 06/24/25 11:41 BP 142/63 06/24/25 11:41 Pulse Ox 95 06/24/25 11:41 O2 Del Method Room Air 06/24/25 11:41 O2 Flow Rate 2 06/24/25 08:00 Discharge Plan Discharge Patient Disposition: Xfer SNF Condition: Stable Prescriptions: New tramadol 50 mg tablet 50 mg PO Q8H PRN (Reason: pain) Qty: 20 0RF acetaminophen 650 mg/20.3 mL Solution 500 mg PO Q4H PRN (Reason: Mild Pain Or Increase Temp) Qty: 1015 0RF Continued metoprolol succinate 25 mg capsule,sprinkle,ER 24hr 25 mg PO DAILY biotin 1 mg tablet 1 mg PO QAM PreserVision AREDS-2 [id number] [id number]-mg capsule 1 tab PO BID multivitamin Tablet 1 tab PO QAM aspirin [Aspir-81] 81 mg Tablet,Delayed Release (Dr/Ec) 81 mg PO QAM oxybutynin chloride 5 mg tablet 5 mg PO BEDTIME PRN (Reason: OVERACTIVE BLADDER) pantoprazole 40 mg tablet,delayed release (DR/EC) 40 mg PO QAM Held furosemide 20 mg tablet 20 mg PO DAILY potassium chloride 40 mEq/15 mL liquid 7.5 meq PO DAILY Hold Instructions: Resume on 06/30/25. Discharge Order = DC NOW: Discharge Order (Routine); Ordered 06/24/25 Ordered By: Florin Ferro Other Ambulatory Orders: DME: Cane/ Crutches (Order) Location: None Selected Ordered By: Florin Ferro Referrals: [facility] [Outside] Ciera Shepherd FNP [Primary Care Provider, Family Practice] Guicho Salguero PA [Physician Correction Warden, Orthopedics] - 2 weeks Referral Note: possible follow up x ray and clavicle fracture We have notified your physician's clinic of the need for a follow-up appointment to be scheduled. If you have not heard from them within the next 2 business days, please call them directly. Discharge Diet: Cardiac Discharge Activity: Increase activity as tolerated Patient Instructions: Opioid Safety, Patient Portal & Rafael Instructions Discharge Attestations Time Spent in Discharge Care*: less than 30 min Quality Metrics Clinical Quality Measures [ No reported AMI, CVA or VTE this stay] Coding Level of Care Code Acute Code for [facility] Fwd Diagnoses Cardiomyopathy I42.9 HFrEF (heart failure with reduced ejection fraction) I50.20 Hyperlipidemia E78.5
--- NOTE | 2025-06-24 15:01 | PC.NURSE ---
This nurse called [place] MELITA Garvin [place] [facility] [phone] [facility] should be here anytime to get patient.
== END 2025-06-24 15:35 | disposition skilled nursing facility (03) ==
LOC: ER 13:40 → MEDSURG 13:48
PROVIDERS: Admitting Provider Internal Medicine; Emergency Provider Family Medicine; PCP Nurse Practitioner Family; Visit Provider Internal Medicine
DX: S42.032A Displaced fracture of lateral end of left clavicle, initial encounter for closed fracture (principal); W06.XXXA Fall from bed, initial encounter; R55 Syncope and collapse; I42.9 Cardiomyopathy, unspecified; I50.20 Unspecified systolic (congestive) heart failure; E78.5 Hyperlipidemia, unspecified; K21.9 Gastro-esophageal reflux disease without esophagitis; Z79.82 Long term (current) use of aspirin; E87.1 Hypo-osmolality and hyponatremia; Z87.891 Personal history of nicotine dependence; R13.19 Other dysphagia
CPT/HCPCS: 36415; 51702; 51798; 70450; 70498; 71045; 72125; 73000; 73030; 73562; 80053; 81001; 84484; 85025; 87077; 87086; 87186; 93005; 93306; 93880; 96360; 96361; 96372; 97110; 97116; 97161; 97530; 99285; G0378; J1650; J7030; J9999